=== PATIENT | female | born 1955 | race African-American/Black ===

== ENCOUNTER 2016-08-16 19:39 | Emergency (ER) | payer OTHER ==
[2016-08-16 19:47] VITALS: BP 156/91; BMI 35.7
[2016-08-16] MEDS ORDERED: IBUPROFEN 600 MG TABLET (FP) PO ONE ×2 (20:01→20:05)
--- NOTE | 2016-08-16 20:18 | PDOC ---
History of Present Illness - General Chief Complaint: Back Pain Stated Complaint: BACK PAIN/COUGH/FEVER/VOMITING Time Seen by Provider: 08/16/16 19:52 History Source: Patient Exam Limitations: No Limitations - History of Present Illness Initial Comments: 08/16/16 20:05 60-year-old female with history of diabetes presents with generalized myalgia, cough, sore throat, nausea, subjective fever and chills, and generalized weakness. Patient states took nothing for the above and denies any recent travel or recent sick contacts. Timing/Duration: 24 hours Severity: moderate Associated Symptoms: reports: cough, fever/chills, nausea/vomiting, weakness Past History - Past Medical History Allergies/Adverse Reactions: Allergies Allergy/AdvReac Type Severity Reaction Status Date / Time No Known Allergies Allergy Verified 08/16/16 19:45 Home Medications: Ambulatory Orders Lovastatin 10 mg PO HS 11/03/11 Potassium Chloride [K-Dur -] 10 meq PO DAILY 11/03/11 Ramipril [Altace] 20 mg PO DAILY 11/03/11 Felodipine [Plendil] 10 mg PO DAILY #30 11/06/11 Metformin HCl [Glucophage] 500 mg PO BIDAC #30 tablet 11/06/11 Azithromycin [Zithromax 250mg Tablets -] 250 mg PO UTDICT #6 tab 05/16/16 Guaifenesin Dm [Mucinex Dm -] 1 tab PO Q12H PRN #10 tab.er.12h 05/16/16 Lisinopril [Prinivil] 20 mg PO DAILY 05/16/16 Diabetes: Yes (insulin dependent) HTN: Yes Suicide Attempt (Hx): No - Immunization History Immunization Up to Date: Yes - Psycho/Social/Smoking Cessation Hx Anxiety: No Suicidal Ideation: No Smoking Status: No Smoking History: Never smoked Have you smoked in the past 12 months: No Number of Cigarettes Smoked Daily: 0 Information on smoking cessation initiated: No Hx Alcohol Use: No Drug/Substance Use Hx: No Substance Use Type: None Patient Lives Alone: No Lives with/in: spouse/SO Review of Systems - Review of Systems Able to Perform ROS?: Yes Constitutional: Yes: Chills, Fever HEENTM: Yes: Throat Pain Respiratory: Yes: Cough Cardiac (ROS): No: Symptoms Reported ABD/GI: Yes: Nausea : No: Symptoms Reported Musculoskeletal: Yes: Muscle Pain (generalized) Integumentary: No: Symptoms Reported Neurological: No: Symptoms reported Endocrine: No: Symptoms Reported Hematologic/Lymphatic: No: Symptoms Reported *Physical Exam - Vital Signs Last Vital Signs Temp Pulse Resp BP Pulse Ox 99.0 F 96 H 14 156/91 96 08/16/16 19:45 08/16/16 19:45 08/16/16 19:45 08/16/16 19:45 08/16/16 19:45 - Physical Exam General Appearance: Yes: Nourished, Appropriately Dressed. No: Apparent Distress HEENT: positive: EOMI, ALVAR[place]O, TMs Normal, Pharynx Normal. negative: Pale Conjunctivae Neck: positive: Supple. negative: Lymphadenopathy (R), Lymphadenopathy (L) Respiratory/Chest: positive: Lungs Clear, Normal Breath Sounds. negative: Respiratory Distress, Accessory Muscle Use Cardiovascular: positive: Regular Rhythm, Regular Rate. negative: Murmur Gastrointestinal/Abdominal: positive: Soft. negative: Tenderness Extremity: positive: Normal Capillary Refill. negative: Pedal Edema Integumentary: positive: Normal Color, Warm, Moist Neurologic: positive: Normal Mood/Affect, Motor Strength 12/18 ED Treatment Course - Medications Given in the ED: ED Medications Discontinued Medications Generic Name Dose Route Start Last Admin Trade Name Freq PRN Reason Stop Dose Admin Ibuprofen 600 mg 08/16/16 20:01 08/16/16 20:07 Motrin - PO 08/16/16 20:02 600 mg ONCE ONE Administration Medical Decision Making - Medical Decision Making 08/16/16 20:24 Pt with generalized weakness, cough, sore throat, nausea and generalized myalgia greater in the lower back. Pt appears viral ? influenza. Pt ordered for motrin and flu swab sent. [facility] yesterday 106. 08/16/16 21:20 Influenza inconclusive of influenza patient stating feeling better after receiving the Motrin and Flexeril for her back pain which she states is chronic. Patient states unable to give me urine at this time but does not feel this is urinary related and requesting to go home. Patient states does want something for the dry irritating cough especially at night when she is laying down. Patient will be given a prescription for Delsym since she is a diabetic. *DC/Admit/Observation/Transfer Diagnosis at time of Disposition: Cough, Muscle pain, Acute exacerbation of chronic low back pain - Discharge Dispostion Disposition: HOME Condition at time of disposition: Improved - Patient Instructions Printed Discharge Instructions: DI for Cough -- Adult, DI for Low Back Pain, DI for Viral Syndrome Additional Instructions: Please take Motrin or Tylenol for adequate myalgia and fever control. Drink plenty of fluids. Take Delsym is recommended for cough
[2016-08-16 22:09] VITALS: PULSE 83; TEMP 99.6
== END 2016-08-16 22:12 | disposition home or self-care (01) ==
LOC: JERFT 19:39
DX: M54.5 Low back pain (principal); M79.1 Myalgia; I10 Essential (primary) hypertension; E11.9 Type 2 diabetes mellitus without complications; Z79.4 Long term (current) use of insulin
CPT/HCPCS: 87254; 87804; 99281-25

== ENCOUNTER 2016-08-18 22:14 | Emergency (ER) | payer OTHER ==
[2016-08-18 22:42] VITALS: BP 134/95; PULSE 71; TEMP 98.5; BMI 37.4
== END 2016-08-18 23:20 | disposition left against medical advice (07) ==
LOC: JER 22:14
DX: Z53.21 Procedure and treatment not carried out due to patient leaving prior to being seen by health care provider (principal)
CPT/HCPCS: 99281-25

== ENCOUNTER 2016-10-22 04:35 | Emergency (ER) | payer OTHER ==
[2016-10-22 04:59] VITALS: BP 125/84; PULSE 88; TEMP 97.9; BMI 32.4
[2016-10-22] MEDS ORDERED: ALBUTEROL SO4 2.5/IPRATROPIUM 0.5 INH SOL 3 ML VIAL.NEB. NEB STA ×2 (05:03)
[2016-10-22] MEDS ORDERED: predniSONE 20 MG TABLET (UD) PO ONE (05:03)
--- NOTE | 2016-10-22 05:04 | PDOC ---
History of Present Illness - General History Source: Patient Exam Limitations: No Limitations - History of Present Illness Initial Comments: 10/22/16 05:12 The patient is a 60 year old female with significant past medical history of hypertension and diabetes who presents to the ED with 1 week of persistent cough and post nasal drip. She states taking mucinex and sudafed with no improvement. She denies chest pain or SOB. Denies history of asthma. Denies known sick contacts. Patient states she was exposed to smoke around her, but denies smoking. The patient denies fever, chills, diaphoresis, and lightheadedness. The patient denies abdominal pain, nausea, vomiting, and diarrhea. Allergies: NKDA Social History: No alcohol, tobacco, or drug use reported. Past Surgical History: None reported PCP: Dr. Ricky Bernard <Kathryn Rodriguez - Last Filed: 10/22/16 05:12> - General History Source: Patient <GerardoPollo sher - Last Filed: 10/22/16 06:38> - General Chief Complaint: Cold Symptoms Stated Complaint: CANT SLEEP Time Seen by Provider: 10/22/16 05:02 Past History <Kathryn Rodriguez - Last Filed: 10/22/16 05:12> - Past Medical History Diabetes: Yes (insulin dependent) HTN: Yes Suicide Attempt (Hx): No - Immunization History Immunization Up to Date: Yes - Psycho/Social/Smoking Cessation Hx Anxiety: No Suicidal Ideation: No Smoking Status: No Smoking History: Never smoked Have you smoked in the past 12 months: No Number of Cigarettes Smoked Daily: 0 Information on smoking cessation initiated: No Hx Alcohol Use: No Drug/Substance Use Hx: No Substance Use Type: None <Pollo Early - Last Filed: 10/22/16 06:38> - Past Medical History Allergies/Adverse Reactions: Allergies Allergy/AdvReac Type Severity Reaction Status Date / Time No Known Allergies Allergy Verified 08/18/16 22:38 Home Medications: Ambulatory Orders Lovastatin 10 mg PO HS 11/03/11 Potassium Chloride [K-Dur -] 10 meq PO DAILY 11/03/11 Ramipril [Altace] 20 mg PO DAILY 11/03/11 Felodipine [Plendil] 10 mg PO DAILY #30 11/06/11 Metformin HCl [Glucophage] 500 mg PO BIDAC #30 tablet 11/06/11 Azithromycin [Zithromax 250mg Tablets -] 250 mg PO UTDICT #6 tab 05/16/16 Guaifenesin Dm [Mucinex Dm -] 1 tab PO Q12H PRN #10 tab.er.12h 05/16/16 Lisinopril [Prinivil] 20 mg PO DAILY 05/16/16 Diphenhydra/Phenyleph/Acetamin [Delsym Cough+Cold Nighttime Lq] 20 ml PO HS #1 bottle 08/16/16 Albuterol Sulfate Inhaler - [Ventolin HFA Inhaler -] 2 inh IH Q6H #1 inh Azithromycin [Zithromax -] 250 mg PO UTDICT #6 tab 10/22/16 Methylprednisolone [Medrol Dose Ralf] 4 mg PO ASDIR #21 tablet 10/22/16 Review of Systems - Review of Systems Able to Perform ROS?: Yes Comments:: 10/22/16 05:12 CONSTITUTIONAL: Absent: fever, no chills, no fatigue EYES: Absent: visual changes ENT: +post nasal drip Absent: ear pain, no sore throat CARDIOVASCULAR: Absent: chest pain, no palpitations RESPIRATORY: +cough Absent: no SOB GI: Absent: abdominal pain, no nausea, no vomiting, no constipation, no diarrhea GENITOURINARY: Absent: dysuria, no frequency, no hematuria MUSKULOSKELETAL: Absent: back pain, no arthralgia, no myalgia SKIN: Absent: rash NEURO: Absent: headache <Bharrat,Kathryn - Last Filed: 10/22/16 05:12> *Physical Exam - Vital Signs Last Vital Signs Temp Pulse Resp BP Pulse Ox 97.9 F 88 18 125/84 100 10/22/16 04:57 10/22/16 04:57 10/22/16 04:57 10/22/16 04:57 10/22/16 04:57 - Physical Exam Comments: 10/22/16 05:12 GENERAL: Well-appearing, well-nourished. No apparent distress. HEENT: Normocephalic, atraumatic. PERRL, EOM intact. CARDIOVASCULAR: Normal S1, S2. Regular rate and rhythm. PULMONARY: Diffuse wheezing. ABDOMEN: Soft, non-distended, non-tender. EXTREMITIES: Normal ROM in all four extremities. No gross deformities. SKIN: Warm, dry. No rash NEUROLOGICAL: No focal neurological deficits. <Kathryn Rodriguez - Last Filed: 10/22/16 05:12> - Vital Signs Last Vital Signs Temp Pulse Resp BP Pulse Ox 97.9 F 88 18 125/84 100 10/22/16 04:57 10/22/16 04:57 10/22/16 04:57 10/22/16 04:57 10/22/16 04:57 <Pollo Early - Last Filed: 10/22/16 06:38> ED Treatment Course - Medications Given in the ED: ED Medications Discontinued Medications Generic Name Dose Route Start Last Admin Trade Name Freq PRN Reason Stop Dose Admin Prednisone 60 mg 10/22/16 05:03 10/22/16 05:11 Deltasone - PO 10/22/16 05:04 60 mg ONCE ONE Administration <Kathryn Rodriguez - Last Filed: 10/22/16 05:12> Medical Decision Making - Medical Decision Making 10/22/16 06:37 Dr. Early: The scribe's documentation has been prepared under my direction and personally reviewed by me in its entirery. I confirm that the note above accurately reflects all work, treatment, procedures, and medical decision making performed by me. <Pollo Early - Last Filed: 10/22/16 06:38> *DC/Admit/Observation/Transfer - Attestations Scribe Attestion: 10/22/16 05:12 Documentation prepared by Kathryn Rodriguez, acting as medical certification specialist for Pollo Early MD <Kathryn Rodriguez - Last Filed: 10/22/16 05:12> - Discharge Dispostion Admit: No <Pollo Early - Last Filed: 10/22/16 06:38> Diagnosis at time of Disposition: Bronchitis, Bronchospasm - Discharge Dispostion Disposition: HOME Condition at time of disposition: Stable - Prescriptions Prescriptions: Methylprednisolone [Medrol Dose Ralf] 4 mg PO ASDIR #21 tablet Albuterol Sulfate Inhaler - [Ventolin HFA Inhaler -] 2 inh IH Q6H #1 inh Azithromycin [Zithromax -] 250 mg PO UTDICT #6 tab - Referrals Referrals: Ricky Bernard [Primary Care Provider] - Arnold Krueger MD [Staff Physician] - - Patient Instructions Printed Discharge Instructions: DI for Acute Bronchitis Additional Instructions: Please start taking the medrol dose pack and antibiotic tomorrow follow up with you doctor as soon as possible.
[2016-10-22] MEDS ORDERED: predniSONE 20 MG TABLET (UD) ONE (05:05)
[2016-10-22] MEDS ORDERED: ALBUTEROL SO4 2.5/IPRATROPIUM 0.5 INH SOL 3 ML VIAL.NEB. NEB ONE ×2 (05:11→05:12)
[2016-10-22] MEDS ORDERED: AZITHROMYCIN 250 MG TABLET (FP) PO STA (06:34)
[2016-10-22] MEDS ORDERED: AZITHROMYCIN 250 MG TABLET (FP) ONE (06:40)
== END 2016-10-22 06:43 | disposition home or self-care (01) ==
LOC: JER 04:35
PROC: 3E0F7GC Introduction of Other Therapeutic Substance into Respiratory Tract, Via Natural or Artificial Opening (ICD-10-PCS; principal; 2016-10-22)
PROC: 3E0F7GC Introduction of Other Therapeutic Substance into Respiratory Tract, Via Natural or Artificial Opening (ICD-10-PCS; 2016-10-22)
DX: J20.9 Acute bronchitis, unspecified (principal); I10 Essential (primary) hypertension; E11.9 Type 2 diabetes mellitus without complications; Z79.84 Long term (current) use of oral hypoglycemic drugs
CPT/HCPCS: 99281-25

== ENCOUNTER 2017-03-17 18:45 | Observation (INO) | payer OTHER ==
[2017-03-17] MEDS ORDERED: ONDANSETRON 4 MG/2 ML VIAL IVPB ONE (19:26)
[2017-03-17] MEDS ORDERED: morphine CARPU-JECT 4 MG/1 ML DISP.SYRIN IVPUSH ONE (19:26)
[2017-03-17] MEDS ORDERED: SODIUM CHLORIDE 1,000 ML IV STA (19:26)
[2017-03-17] MEDS ORDERED: ONDANSETRON 4 MG/2 ML VIAL ONE (19:32)
[2017-03-17] MEDS ORDERED: morphine CARPU-JECT 4 MG/1 ML DISP.SYRIN ONE (19:32)
[2017-03-17 19:56] LABS: BASOPHIL 0.6 % (0-2.0); EOSINOPHIL 0.2 % (0-4.5); MCH 25.2 pg (25.7-33.7); MCHC 32.4 g/dl (32.0-36.0); MEAN CELL VOLUME 77.6 fl (80-96); MEAN PLT VOLUME 9.9 fl (7.5-11.1); NEUTROPHILS 83.2 % (42.8-82.8); PLATELET COUNT 258 K/MM3 (134-434); WHITE BLOOD COUNT 9.1 K/mm3 (4.0-10.0)
[2017-03-17 20:23] LABS: ALK PHOS 121 U/L (45-117); ANION GAP 10 (8-16); BILIRUBIN,TOTAL 0.3 mg/dL (0.2-1.0); CO2 26 mmol/L (21-32); CREATININE 0.8 mg/dL (0.55-1.02); GLUCOSE,RANDOM 161 mg/dL (74-106); SGOT/AST 16 U/L (15-37); SGPT/ALT 25 U/L (12-78)
[2017-03-17 20:26] LABS: CPK 230 IU/L (26-192); TROPONIN I < 0.02 ng/ml (0.00-0.05)
[2017-03-17] MEDS ORDERED: SODIUM CHLORIDE 500 ML IV STA (21:25)
[2017-03-17] MEDS ORDERED: METOCLOPRAMIDE HCL INJECTION 10 MG/2 ML VIAL IVPB ONE (21:55)
[2017-03-17 23:01] LABS: URINE APPEARANCE CLEAR; URINE BILIRUBIN NEGATIVE (NEGATIVE); URINE BLOOD 1+ (NEGATIVE); URINE COLOR STRAW; URINE GLUCOSE (UA) NEGATIVE (NEGATIVE); URINE KETONE TRACE (NEGATIVE); URINE LEUK ESTERASE NEGATIVE (NEGATIVE); URINE NITRITE NEGATIVE (NEGATIVE); URINE UROBILINOGEN NEGATIVE mg/dL (0.2-1.0)
[2017-03-17 23:08] LABS: URINE PROTEIN 1+ (NEGATIVE)
[2017-03-17 23:09] LABS: URINE MUCUS RARE; URINE RBC 1 /hpf (0-3); URINE WBC <1 /hpf (3-5)
--- NOTE | 2017-03-17 23:57 | PDOC ---
History of Present Illness <Hazel Love - Last Filed: 03/18/17 00:28> - General History Source: Patient Exam Limitations: No Limitations - History of Present Illness Initial Comments: 03/17/17 23:51 61-year-old female with history of diabetes, hypertension, hyperlipidemia, copd complains of severe diffuse intermittent abdominal pain, 10 of 10, nonradiating , not positional, associated with numerous episodes of nonbloody, nonbilious vomiting and several episodes of loose watery stools. Patient denies fevers/ chills/melena/bright red blood per rectum there is no history of sick contacts, nor history of travel. Patient denies history of diabetic gastroparesis. REVIEW OF SYSTEMS CONSTITUTIONAL: No fever, no chills, no fatigue EYES: No visual changes ENT: No ear pain, no sore throat CARDIOVASCULAR: No chest pain, no palpitations RESPIRATORY: No cough, no SOB GI: + abdominal pain, + nausea, + vomiting, no constipation, + diarrhea GENITOURINARY: No dysuria, no frequency, no hematuria MUSKULOSKELETAL: No backpain, no joint pain, no myalgias SKIN: No rash NEURO: No headache EXAMINATION CONSTITUTIONAL: Awake and alert,; obese; in moderate distress; HEAD: Normocephalic; atraumatic EYES: PERRL; EOM intact; no scleral icterus; ENMT: External appears normal; mm-dry NECK: Supple; non-tender; no cervical lymphadenopathy CARD: Normal S1, S2; no murmurs, rubs, or gallops RESP: Normal chest excursion with respiration; breath sounds clear and equal bilaterally; no wheezes, rhonchi, or rales ABD: Soft, non-distended; + diffuse tenderness, most prominent periumbilically and in the epigastrium; no guarding/rebound; no palpable organomegaly, no palpable hernias; no CVA tenderness bilaterally EXT: Normal ROM in all four extremities; non-tender to palpation; distal pulses intact SKIN: Warm, dry, no rash NEURO: No focal neurological deficiencies. <Tej Roach - Last Filed: 03/18/17 00:31> - General Chief Complaint: Pain Stated Complaint: ABDOMINAL PAIN Time Seen by Provider: 03/17/17 19:09 Past History <Hazel Love - Last Filed: 03/18/17 00:28> - Past Medical History Diabetes: Yes (insulin dependent) HTN: Yes Suicide Attempt (Hx): No - Immunization History Immunization Up to Date: Yes - Psycho/Social/Smoking Cessation Hx Anxiety: No Suicidal Ideation: No Smoking Status: No Smoking History: Never smoked Have you smoked in the past 12 months: No Number of Cigarettes Smoked Daily: 0 Hx Alcohol Use: No Drug/Substance Use Hx: No Substance Use Type: None <Tej Roach - Last Filed: 03/18/17 00:31> - Past Medical History Allergies/Adverse Reactions: Allergies Allergy/AdvReac Type Severity Reaction Status Date / Time No Known Allergies Allergy Verified 03/17/17 18:54 Home Medications: Ambulatory Orders Lovastatin 10 mg PO HS 11/03/11 Potassium Chloride [K-Dur -] 10 meq PO DAILY 11/03/11 Ramipril [Altace] 20 mg PO DAILY 11/03/11 Metformin HCl [Glucophage] 500 mg PO BIDAC #30 tablet 11/06/11 Lisinopril [Prinivil] 20 mg PO DAILY 05/16/16 Albuterol Sulfate Inhaler - [Ventolin HFA Inhaler -] 2 inh IH Q6H #1 inh Methylprednisolone [Medrol Dose Ralf] 4 mg PO ASDIR #21 tablet 10/22/16 *Physical Exam - Vital Signs Last Vital Signs Temp Pulse Resp BP Pulse Ox 98.7 F 97 H 20 140/86 96 03/18/17 00:00 03/18/17 00:00 03/17/17 18:53 03/18/17 00:00 03/18/17 00:00 <Hazel Love - Last Filed: 03/18/17 00:28> - Vital Signs Last Vital Signs Temp Pulse Resp BP Pulse Ox 98.7 F 107 H 20 150/101 95 03/17/17 18:53 03/17/17 18:53 03/17/17 18:53 03/17/17 18:53 03/17/17 18:53 <Tej Roach - Last Filed: 03/18/17 00:31> Heart Score/ECG Review - ECG Intrepretation Comment:: 03/18/17 00:28 EKG was reviewed by Dr. Roach at 00:23. Impression: Sinus tachycardia. Possible Left atrial enlargement. Incomplete right bundle branch block. Nonspecific ST and T wave abnormality. Vent. rate: 101 bpm [place] Interval: 146 ms QTc: 461 ms <Hazel Love - Last Filed: 03/18/17 00:28> ED Treatment Course - LABORATORY CBC & Chemistry Diagram: 03/17/17 19:45 03/17/17 19:45 - ADDITIONAL ORDERS Additional order review: Laboratory Results 03/17/17 03/17/17 03/17/17 22:50 19:45 19:45 Sodium Potassium Chloride Carbon Dioxide Anion Gap BUN Creatinine Creat Clearance w eGFR Random Glucose Lactic Acid 2.1 H* Calcium Total Bilirubin AST ALT Alkaline Phosphatase Creatine Kinase 230 H Creatine Kinase Index 0.6 CK-MB (CK-2) 1.574 Troponin I < 0.02 Total Protein Albumin Lipase Urine Color Straw Urine Appearance Clear Urine pH 6.0 Urine Protein 1+ H Urine Glucose (UA) Negative Urine Ketones Trace H Urine Blood 1+ H Urine Nitrite Negative Urine Bilirubin Negative Urine Urobilinogen Negative Ur Leukocyte Esterase Negative Urine RBC 1 Urine WBC <1 Ur Epithelial Cells Rare Urine Mucus Rare 03/17/17 19:45 Sodium 139 Potassium 3.5 Chloride 103 Carbon Dioxide 26 Anion Gap 10 BUN 15 D Creatinine 0.8 D Creat Clearance w eGFR > 60 Random Glucose 161 H D Lactic Acid Calcium 10.0 Total Bilirubin 0.3 AST 16 D ALT 25 D Alkaline Phosphatase 121 H Creatine Kinase Creatine Kinase Index CK-MB (CK-2) Troponin I Total Protein 8.0 Albumin 4.0 Lipase 92 Urine Color Urine Appearance Urine pH Urine Protein Urine Glucose (UA) Urine Ketones Urine Blood Urine Nitrite Urine Bilirubin Urine Urobilinogen Ur Leukocyte Esterase Urine RBC Urine WBC Ur Epithelial Cells Urine Mucus 03/17/17 19:45 RBC 4.86 MCV 77.6 L MCHC 32.4 RDW 15.0 MPV 9.9 Neutrophils % 83.2 H D Lymphocytes % 13.5 D Monocytes % 2.5 L Eosinophils % 0.2 D Basophils % 0.6 - Medications Given in the ED: ED Medications Discontinued Medications Generic Name Dose Route Start Last Admin Trade Name Freq PRN Reason Stop Dose Admin Sodium Chloride 1,000 mls @ 1,000 mls/hr 03/17/17 19:26 03/17/17 19:50 Normal Saline - IV 03/17/17 20:25 1,000 mls/hr ASDIR STA Administration Sodium Chloride 500 mls @ 500 mls/hr 03/17/17 21:25 03/17/17 21:59 Normal Saline - IV 03/17/17 22:24 500 mls/hr ASDIR STA Administration Metoclopramide HCl 10 mg 03/17/17 21:55 03/17/17 21:59 Reglan Injection - IVPB 03/17/17 21:56 10 mg ONCE ONE Administration Morphine Sulfate 4 mg 03/17/17 19:26 03/17/17 19:48 Morphine Injection - IVPUSH 03/17/17 19:27 4 mg ONCE ONE Administration Ondansetron HCl 8 mg 03/17/17 19:26 03/17/17 19:45 Zofran Injection IVPB 03/17/17 19:27 8 mg ONCE ONE Administration <Hazel Love - Last Filed: 03/18/17 00:28> - LABORATORY CBC & Chemistry Diagram: 03/17/17 19:45 03/17/17 19:45 - ADDITIONAL ORDERS Additional order review: Laboratory Results 03/17/17 03/17/17 03/17/17 22:50 19:45 19:45 Sodium Potassium Chloride Carbon Dioxide Anion Gap BUN Creatinine Creat Clearance w eGFR Random Glucose Lactic Acid 2.1 H* Calcium Total Bilirubin AST ALT Alkaline Phosphatase Creatine Kinase 230 H Creatine Kinase Index 0.6 CK-MB (CK-2) 1.574 Troponin I < 0.02 Total Protein Albumin Lipase Urine Color Straw Urine Appearance Clear Urine pH 6.0 Urine Protein 1+ H Urine Glucose (UA) Negative Urine Ketones Trace H Urine Blood 1+ H Urine Nitrite Negative Urine Bilirubin Negative Urine Urobilinogen Negative Ur Leukocyte Esterase Negative Urine RBC 1 Urine WBC <1 Ur Epithelial Cells Rare Urine Mucus Rare 03/17/17 19:45 Sodium 139 Potassium 3.5 Chloride 103 Carbon Dioxide 26 Anion Gap 10 BUN 15 D Creatinine 0.8 D Creat Clearance w eGFR > 60 Random Glucose 161 H D Lactic Acid Calcium 10.0 Total Bilirubin 0.3 AST 16 D ALT 25 D Alkaline Phosphatase 121 H Creatine Kinase Creatine Kinase Index CK-MB (CK-2) Troponin I Total Protein 8.0 Albumin 4.0 Lipase 92 Urine Color Urine Appearance Urine pH Urine Protein Urine Glucose (UA) Urine Ketones Urine Blood Urine Nitrite Urine Bilirubin Urine Urobilinogen Ur Leukocyte Esterase Urine RBC Urine WBC Ur Epithelial Cells Urine Mucus 03/17/17 19:45 RBC 4.86 MCV 77.6 L MCHC 32.4 RDW 15.0 MPV 9.9 Neutrophils % 83.2 H D Lymphocytes % 13.5 D Monocytes % 2.5 L Eosinophils % 0.2 D Basophils % 0.6 - RADIOLOGY Radiology Studies Ordered: Category Date Time Status ABDOMEN & PELVIS CT W/O CONTR [CT] Stat CT Scan 03/17/17 21:25 Completed - Medications Given in the ED: ED Medications Discontinued Medications Generic Name Dose Route Start Last Admin Trade Name Freq PRN Reason Stop Dose Admin Sodium Chloride 1,000 mls @ 1,000 mls/hr 03/17/17 19:26 03/17/17 19:50 Normal Saline - IV 03/17/17 20:25 1,000 mls/hr ASDIR STA Administration Sodium Chloride 500 mls @ 500 mls/hr 03/17/17 21:25 03/17/17 21:59 Normal Saline - IV 03/17/17 22:24 500 mls/hr ASDIR STA Administration Metoclopramide HCl 10 mg 03/17/17 21:55 03/17/17 21:59 Reglan Injection - IVPB 03/17/17 21:56 10 mg ONCE ONE Administration Morphine Sulfate 4 mg 03/17/17 19:26 03/17/17 19:48 Morphine Injection - IVPUSH 03/17/17 19:27 4 mg ONCE ONE Administration Ondansetron HCl 8 mg 03/17/17 19:26 03/17/17 19:45 Zofran Injection IVPB 03/17/17 19:27 8 mg ONCE ONE Administration <Tej Rocah - Last Filed: 03/18/17 00:31> Medical Decision Making - Medical Decision Making 03/17/17 23:57 Patient 61-year-old female with history of diabetes, hypertension, hyperlipidemia and COPD who presents with diffuse abdominal pain, associated with numerous episodes of nausea, nonbloody nonbilious vomiting and diarrhea. In the ER, patient is awake and alert, writhing in pain, vomited several times requiring several doses of Zofran and Reglan as well as parenteral morphine for pain control. CBC/CMP/UA within normal limit. CT reveals no evidence of acute intra-abdominal pathology. I suspect gastroenteritis versus diabetic gastroparesis. Patient is still unable to tolerate by mouth liquids. At this time, she will require admission further hydration and antiemetic therapy. <MarleyGiuseppeTej - Last Filed: 03/18/17 00:31> *DC/Admit/Observation/Transfer <Hazel Love - Last Filed: 03/18/17 00:28> - Discharge Dispostion Admit: Yes <MarleyTej - Last Filed: 03/18/17 00:31> Diagnosis at time of Disposition: Dehydration Abdominal pain Qualifiers: Abdominal location: generalized Qualified Code(s): R10.84 - Generalized abdominal pain Nausea and vomiting Qualifiers: Vomiting type: unspecified Vomiting Intractability: non-intractable Qualified Code(s): R11.2 - Nausea with vomiting, unspecified Diarrhea Qualifiers: Diarrhea type: unspecified type Qualified Code(s): R19.7 - Diarrhea, unspecified - Discharge Dispostion Condition at time of disposition: Fair
[2017-03-18] MEDS ORDERED: morphine CARPU-JECT 4 MG/1 ML DISP.SYRIN IVPUSH ONE (00:04)
[2017-03-18] MEDS ORDERED: SODIUM CHLORIDE 1,000 ML IV SCH (00:15)
[2017-03-18] MEDS ORDERED: morphine CARPU-JECT 4 MG/1 ML DISP.SYRIN ONE (00:27)
[2017-03-18] MEDS ORDERED: ONDANSETRON 4 MG/2 ML VIAL IVPUSH PRN (01:35)
--- NOTE | 2017-03-18 01:56 | HP ---
CHIEF COMPLAINT: Abdominal pain, nausea, vomiting PCP: HISTORY OF PRESENT ILLNESS: 61yo F with history of diabetes, COPD, HTN, HPL admitted to observation for diffuse abdominal pain, nausea, and multiple episodes of vomiting since noon on 03/17. She states she ate some wonton soup and then started having episodes of vomiting and nausea. She admits to vomiting around 10 times prior to coming to the ED without noting any blood. She also states she has been having loose watery stools without any blood or mucus. She describes her abdominal pain as diffuse and hard to locate. It does not change with position, and waxes-and- wanes in intensity. Denies any fever/chills, sick contacts, urinary complaints. ER course was notable for: (1)CT abdomen with gastrograffin -- no acute pathology noted; 7mm R nonobstructing renal pelvis stone noted (2) Zofran 8mg, Reglan 10mg administered for nausea (3) EKG revealing sinus tachycardia without any ischemic changes (4) CBC, CMP, Lipase, UA all within normal limits (5) Borderline elevation of LA at 2.1 (6) 1L NS initiated for dehydration Recent Travel: Denies PAST MEDICAL HISTORY: COPD HTN Diabetes HPL PAST SURGICAL HISTORY: Left and Right knee replacement (2012 & 2014 respectively) Social History: Smoking: Denies Alcohol: Denies Drugs: Denies Family History: Father - -- unknown Mother - alive - CKD, cardiac stents placed Allergies No Known Allergies Allergy (Verified 03/17/17 18:54) HOME MEDICATIONS: Home Medications Medication Instructions Recorded Lovastatin 10 mg PO HS 11/03/11 Potassium Chloride [K-Dur -] 10 meq PO DAILY 11/03/11 Ramipril [Altace] 20 mg PO DAILY 11/03/11 Metformin HCl [Glucophage] 500 mg PO BIDAC #30 tablet 11/06/11 Lisinopril [Prinivil] 20 mg PO DAILY 05/16/16 Albuterol Sulfate Inhaler - 2 inh IH Q6H #1 inh 10/22/16 [Ventolin HFA Inhaler -] Methylprednisolone [Medrol Dose 4 mg PO ASDIR #21 tablet 10/22/16 Ralf] REVIEW OF SYSTEMS CONSTITUTIONAL: Absent: fever, chills, diaphoresis, generalized weakness, malaise, weight change HEENT: Absent: rhinorrhea, nasal congestion, throat pain, throat swelling, difficulty swallowing, mouth swelling, ear pain, eye pain, visual changes CARDIOVASCULAR: Absent: chest pain, syncope, palpitations, irregular heart rate, lightheadedness , peripheral edema RESPIRATORY: Absent: cough, shortness of breath, dyspnea with exertion, orthopnea, wheezing, stridor, hemoptysis GASTROINTESTINAL: Present: Abdominal pain (diffuse), nausea, vomiting (multiple episodes), diarrhea Absent: constipation, melena, hematochezia GENITOURINARY: Absent: dysuria, frequency, urgency, hesitancy, hematuria, flank pain, genital pain SKIN: Absent: rash, itching, pallor NEUROLOGIC: Absent: headache, focal weakness or paresthesias, dizziness, unsteady gait, seizure, mental status changes, bladder or bowel incontinence PSYCHIATRIC: Absent: anxiety, depression, suicidal or homicidal ideation, hallucinations. PHYSICAL EXAMINATION GENERAL: Awake, alert, and fully oriented, in no acute distress. HEAD: Normal with no signs of trauma. EYES: Pupils equal, round and reactive to light, extraocular movements intact LUNGS: Breath sounds equal, clear to auscultation bilaterally. No wheezes, and no crackles. No accessory muscle use. HEART: Regular rate. Tachycardic, normal S1 and S2 without murmur, rub or gallop. ABDOMEN: Soft, diffuse tenderness, slightly distended, normoactive bowel sounds , no guarding, no rebound, no masses. No hepatomegaly or splenomegaly. MUSCULOSKELETAL: Normal range of motion at all joints. No CVA tenderness. UPPER EXTREMITIES: 2+ pulses, warm, well-perfused. No peripheral edema. LOWER EXTREMITIES: 2+ pulses, warm, well-perfused. No peripheral edema. NEUROLOGICAL: Cranial nerves II-XII intact. Normal speech. PSYCHIATRIC: Cooperative. Appropriate mood and affect. SKIN: Warm, dry, no rashes or lesions noted ASSESSMENT/PLAN: 61 yo F pmhx of copd, htn, diabetes, hpl admitted to obs for most likely gastroenteritis. Initial presentation of multiple episodes of vomiting, nausea, diffuse abdominal pain. Currently since receiving zofran and reglan, pt is still nauseous however has not vomited since. 1) Gastroenteritis --CT Abdomen with gastrograffin: No acute pathology noted. Bowel non- distended with gastrograffin reaching distal colon. Pancreas and appendix normal. 7mm nonobstructing R renal pelvis stone noted. --Doubt diabetic gastroparesis due to acute timing and lack of ileus seen on CT scan --Most likely etiology of symptoms --Continue Zofran 8mg IVP PRN for nausea --Continue Reglan 10mg IVP PRN for nausea/vomiting --Continue 1L NS fluids --Clear liquid diet for now; will trial diabetic full diet in morning for PO tolerance before discharge 2) Diabetes --ISS on board --BGM monitoring --Random BG lvl 161 currently FEN: Fluids: NS for dehydration Electrolytes: No abnormalities seen Nutrition: Clear liquids for now; tomorrow will trial on diabetic full diet prior to discharge Dispo: Admit to observation Visit type - Emergency Visit Emergency Visit: Yes ED Registration Date: 03/18/17 Care time: The patient presented to the Emergency Department on the above date and was hospitalized for further evaluation of their emergent condition. - New Patient This patient is new to me today: Yes Date on this admission: 03/18/17 - Critical Care Critical Care patient: No
[2017-03-18 03:09] VITALS: BMI 37.0
[2017-03-18] MEDS: morphine CARPU-JECT 4 MG/1 ML DISP.SYRIN IVPUSH PRN ×2 (05:58→14:02)
[2017-03-18] MEDS: INSULIN SLIDING SCALE (NOVOLOG) 1 VIAL SQ SCH ×4 (06:03→21:37)
--- NOTE | 2017-03-18 06:46 | PN ---
Teaching Attending Note Name of Resident: Eliel Krueger ATTENDING PHYSICIAN STATEMENT I saw and evaluated the patient. I reviewed the resident's note and discussed the case with the resident. I agree with the resident's findings and plan as documented. 61 yrs old f H?o Obesity, T2DM, HTN, Dyslipedemia, COPD present with nausea with non bloody, non Billous vomiting, 8-10 time with watery loose stool after having soup in after noon, patient denies any epigastic pain, fever, chills, hemetmesis or melena, on arrival to Ed hemodynamically stable, clinically mild dehydration, labs are essentially normal, symptoms partially improved after IV Hydration and Zofran in the ED, admitted for observation and IV Hydration; Impression: 1. acute Gastroenteritis with mild dehydration:no clinical sign of of sepsis , presentation more consistent with contaminated food , started with in few hours , no abx, IV Hydration and symptomatic treatment f/u clinically 2. Mildly Elevated lactic acid : On Metformin dehydration, normal Bicarbonate , less likely due to Sepsis F/U after IV Hydration. Hold Metformin 3. HTN: well controlled cont all meds 4. Dyslipedemia; Cont all home meds 5. COPD; stable cont Home inhalers. 6. T2DM: RPG 160 hold Metformin F/U Accu Check with Sliding scale regular insulin. SCD for DVT Prophylaxis
[2017-03-18 09:03] LABS: ANION GAP 9 (8-16); CALCIUM 8.6 mg/dL (8.5-10.1); CO2 27 mmol/L (21-32); CREATININE 0.6 mg/dL (0.55-1.02); GLUCOSE,RANDOM 116 mg/dL (74-106)
--- NOTE | 2017-03-18 10:43 | EKG ---
Test Reason : Blood Pressure : / mmHG Vent. Rate : 101 BPM Atrial Rate : 101 BPM P-R Int : 146 ms QRS Dur : 092 ms QT Int : 356 ms P-R-T Axes : 043 -27 039 degrees QTc Int : 461 ms SINUS TACHYCARDIA POSSIBLE LEFT ATRIAL ENLARGEMENT INCOMPLETE RIGHT BUNDLE BRANCH BLOCK NONSPECIFIC ST AND T WAVE ABNORMALITY ABNORMAL ECG WHEN COMPARED WITH ECG OF 17-APR-2015 15:07, ST NOW DEPRESSED IN INFERIOR LEADS NONSPECIFIC T WAVE ABNORMALITY NOW EVIDENT IN ANTERIOR LEADS Confirmed by ELIJAH AMOS MD ([id number]) on 03/18/2017 10:42:59 AM Referred By: Confirmed By:ELIJAH AMOS MD
[2017-03-18] MEDS ORDERED: POTASSIUM CHLORIDE TABS 20 MEQ TABLET.ER (FP) PO ONE (11:35)
[2017-03-18] MEDS: METOCLOPRAMIDE HCL INJECTION 10 MG/2 ML VIAL IVPUSH PRN (11:54)
[2017-03-18] MEDS: POTASSIUM CHLORIDE 40 MEQ in SODIUM CHLORIDE 0.45% 1,000 ML IVPB SCH ×3 (13:51→21:38)
--- NOTE | 2017-03-18 16:26 | PN ---
Physical Exam: SUBJECTIVE: Patient seen and examined at bedside. States she is still having abdominal pain and vomiting. No other complaints. Denies headache, cp, sob, diarrhea, dysuria, fever. OBJECTIVE: Vital Signs Period Temp Pulse Resp BP Sys/Malone Pulse Ox Last 24 Hr 98.6 F-98.9 F 81-102 18-20 130-161/68-96 93 GENERAL: The patient is awake, alert, and fully oriented, in no acute distress. HEAD: Normal with no signs of trauma. EYES: sclera anicteric, conjunctiva clear. No ptosis. ENT: oropharynx clear without exudates, moist mucous membranes. NECK: Trachea midline, full range of motion, supple. LUNGS: Breath sounds equal, clear to auscultation bilaterally, no wheezes, no crackles, no accessory muscle use. HEART: Regular rate and rhythm, normal S1, S2 without murmur, rub or gallop. ABDOMEN: Obese. Soft, nontender, nondistended, normoactive bowel sounds, no guarding, no rebound, no hepatosplenomegaly, no masses. EXTREMITIES: 2+ pulses, warm, well-perfused, no edema. NEUROLOGICAL: Cranial nerves II through XII grossly intact. Normal speech, gait not observed. PSYCH: Normal mood, normal affect. SKIN: Warm, dry, normal turgor, no rashes or lesions noted Laboratory Results - last 24 hr 03/18/17 03/18/17 03/18/17 06:00 08:00 09:25 Sodium 138 Potassium 3.3 L Chloride 102 Carbon Dioxide 27 Anion Gap 9 BUN 10 D Creatinine 0.6 D POC Glucometer 121 Random Glucose 116 H D Lactic Acid 0.8 Calcium 8.6 03/18/17 11:14 Sodium Potassium Chloride Carbon Dioxide Anion Gap BUN Creatinine POC Glucometer 132 Random Glucose Lactic Acid Calcium Active Medications Generic Name Dose Route Start Last Admin Trade Name Freq PRN Reason Stop Dose Admin Potassium Chloride 40 meq/ 1,020 mls @ 150 mls/hr 03/18/17 12:00 03/18/17 13:51 Sodium Chloride IVPB 150 mls/hr Q6H AMOR Administration Insulin Aspart 1 vial 03/18/17 07:00 03/18/17 11:15 Novolog Vial Sliding Scale - SQ Not Given ACHS [facility] Protocol Metoclopramide HCl 10 mg 03/18/17 01:33 03/18/17 11:54 Reglan Injection - IVPUSH 10 mg Q6H PRN Administration NAUSEA AND/OR VOMITING Morphine Sulfate 2 mg 03/18/17 01:29 03/18/17 14:02 Morphine Injection - IVPUSH 2 mg Q4H PRN Administration PAIN ASSESSMENT/PLAN: 61 yo F pmhx of copd, htn, diabetes, hpl admitted to obs for most likely gastroenteritis. Initial presentation of multiple episodes of vomiting, nausea, diffuse abdominal pain. Admitted to Obs for gastroenteritis #Gastroenteritis -CT Abdomen with gastrograffin: No acute pathology noted. Bowel non-distended with gastrograffin reaching distal colon. Pancreas and appendix normal. 7mm nonobstructing R renal pelvis stone noted. -diabetic gastroparesis unlikely because of acute timing and lack of ileus seen on CT scan -Continue Reglan 10mg IVP PRN for nausea/vomiting -diabetic diet -Morphine for pain -UCx, UA #Lactic Acidosis: RESOLVED -from 2.1 to 0.8 #HypoK -1/2NS w/ 40mEq KCl #Diabetes -ISS on board -BGM monitoring #HLD -cont home meds #COPD -Cont home meds #FEN: -Fluids: 1/2NS w/ 40mEq KCl -Electrolytes: hypoK. repleted -Nutrition: Clear liquids for now; tomorrow will trial on diabetic full diet prior to discharge #Dispo: Admit to observation Visit type - Emergency Visit Emergency Visit: No - New Patient This patient is new to me today: No - Critical Care Critical Care patient: No - Discharge Referral Referred to [facility] No
--- NOTE | 2017-03-18 19:56 | PN ---
Teaching Attending Note Name of Resident: Brandon Serrano ATTENDING PHYSICIAN STATEMENT I saw and evaluated the patient. I reviewed the resident's note and discussed the case with the resident. I agree with the resident's findings and plan as documented. SUBJECTIVE: Patient continue to experience nausea and vomiting. No fever or chills. OBJECTIVE: Vital Signs Temperature 98.9 F 03/18/17 14:00 Pulse Rate 81 03/18/17 14:00 Respiratory Rate 20 03/18/17 14:00 Blood Pressure 161/93 03/18/17 14:00 O2 Sat by Pulse Oximetry (%) 93 L 03/18/17 01:47 CBCD WBC 9.1 K/mm3 (4.0-10.0) D 03/17/17 19:45 RBC 4.86 M/mm3 (3.60-5.2) 03/17/17 19:45 Hgb 12.2 GM/dL (10.7-15.3) 03/17/17 19:45 Hct 37.7 % (32.4-45.2) 03/17/17 19:45 MCV 77.6 fl (80-96) L 03/17/17 19:45 MCHC 32.4 g/dl (32.0-36.0) 03/17/17 19:45 RDW 15.0 % (11.6-15.6) 03/17/17 19:45 Plt Count 258 K/MM3 (134-434) 03/17/17 19:45 MPV 9.9 fl (7.5-11.1) 03/17/17 19:45 CMP Sodium 138 mmol/L (136-145) 03/18/17 08:00 Potassium 3.3 mmol/L (3.5-5.1) L 03/18/17 08:00 Chloride 102 mmol/L (98-107) 03/18/17 08:00 Carbon Dioxide 27 mmol/L (21-32) 03/18/17 08:00 Anion Gap 9 (8-16) 03/18/17 08:00 BUN 10 mg/dL (7-18) D 03/18/17 08:00 Creatinine 0.6 mg/dL (0.55-1.02) D 03/18/17 08:00 Creat Clearance w eGFR > 60 (>60) 03/17/17 19:45 Random Glucose 116 mg/dL (74-106) H D 03/18/17 08:00 Calcium 8.6 mg/dL (8.5-10.1) 03/18/17 08:00 Total Bilirubin 0.3 mg/dL (0.2-1.0) 03/17/17 19:45 AST 16 U/L (15-37) D 03/17/17 19:45 ALT 25 U/L (12-78) D 03/17/17 19:45 Alkaline Phosphatase 121 U/L (45-117) H 03/17/17 19:45 Total Protein 8.0 g/dl (6.4-8.2) 03/17/17 19:45 Albumin 4.0 g/dl (3.4-5.0) 03/17/17 19:45 CARDIAC ENZYMES Creatine Kinase 230 IU/L (26-192) H 03/17/17 19:45 Troponin I < 0.02 ng/ml (0.00-0.05) 03/17/17 19:45 Current Medications Generic Name Dose Route Start Last Admin Trade Name Freq PRN Reason Stop Dose Admin Potassium Chloride 40 meq/ 1,020 mls @ 150 mls/hr 03/18/17 12:00 03/18/17 18:04 Sodium Chloride IVPB Not Given Q6H [facility] Insulin Aspart 1 vial 03/18/17 07:00 03/18/17 17:25 Novolog Vial Sliding Scale - SQ Not Given ACHS [facility] Protocol Metoclopramide HCl 10 mg 03/18/17 01:33 03/18/17 11:54 Reglan Injection - IVPUSH 10 mg Q6H PRN Administration NAUSEA AND/OR VOMITING Morphine Sulfate 2 mg 03/18/17 01:29 03/18/17 14:02 Morphine Injection - IVPUSH 2 mg Q4H PRN Administration PAIN Home Medications Medication Instructions Recorded Lovastatin 10 mg PO HS 11/03/11 Ramipril [Altace] 20 mg PO DAILY 11/03/11 Lisinopril [Prinivil] 20 mg PO DAILY 05/16/16 Albuterol Sulfate Inhaler - 2 inh IH Q6H #1 inh 10/22/16 [Ventolin HFA Inhaler -] Methylprednisolone [Medrol Dose 4 mg PO ASDIR #21 tablet 10/22/16 Ralf] Blood Sugar Diagnostic [Test 1 each MC TID 03/18/17 Strips] Cyclobenzaprine HCl [Flexeril -] 10 mg PO HS 03/18/17 Felodipine [Felodipine ER] 10 mg PO DAILY 03/18/17 Fluticasone Prop 0.05% Nasal 1 - 2 spray NS DAILY 03/18/17 [Flonase -] Insulin Glargine,Hum.rec.anlog 100 unit SQ HS 03/18/17 [Basaglar Kwikpen U-100] Lisinopril/Hydrochlorothiazide 1 each PO DAILY 03/18/17 [Lisinopril-Hctz 20-12.5 mg Tab] Metformin HCl 850 mg PO BID 03/18/17 Oxycodone HCl/Acetaminophen 1 each PO Q6H PRN 03/18/17 [Percocet 10-325 mg Tablet] Pantoprazole Sodium 40 mg PO DAILY 03/18/17 Potassium Chloride [K-Dur -] 10 meq PO DAILY 03/18/17 Simvastatin 20 mg PO HS 03/18/17 Abdomen: NAD, mild mid abdomen tenderness PE: rest per resident's note -CT Abdomen with gastrograffin: No acute pathology noted. Bowel non-distended with gastrograffin reaching distal colon. Pancreas and appendix normal. 7mm nonobstructing R renal pelvis stone noted. ASSESSMENT AND PLAN: 61 yo F pmhx of copd, htn, diabetes, hpl admitted for Acute gastroenteritis. # Acute Gastroenteritis improving continue IVF # Acute intractable nausea and vomiting on IVF continue #Lactic Acidosis: RESOLVED; 2.1 --> 0.8 # Acute hypokalemia on IVF 1/2NS w/ 40mEq KCl continue # T2DM ISS on board, BGM monitoring #HLD cont home meds #COPD Cont home meds DVT Px: Lovenox 40mg sq
[2017-03-18] MEDS ORDERED: ENOXAPARIN NA (PORCINE) 40 MG/0.4 ML DISP.SYRIN SQ ONE (20:05)
[2017-03-19] MEDS: METOCLOPRAMIDE HCL INJECTION 10 MG/2 ML VIAL IVPUSH PRN ×2 (00:51→12:39)
[2017-03-19] MEDS ORDERED: LOPERAMIDE HCL 2 MG CAPSULE PO PRN (01:31)
[2017-03-19] MEDS ORDERED: ACETAMINOPHEN 325 MG TABLET (FP) PO PRN ×2 (01:33→01:41)
[2017-03-19] MEDS ORDERED: morphine CARPU-JECT 2 MG/1 ML DISP.SYRIN IVPUSH PRN ×2 (01:35→01:41)
[2017-03-19] MEDS: morphine CARPU-JECT 4 MG/1 ML DISP.SYRIN IVPUSH PRN ×2 (02:08→08:08)
[2017-03-19] MEDS ORDERED: ONDANSETRON 8 MG TABLET (FP) PO PRN (04:25)
[2017-03-19] MEDS: ONDANSETRON 4 MG TABLET PO PRN ×2 (05:01→17:58)
[2017-03-19] MEDS: POTASSIUM CHLORIDE 40 MEQ in SODIUM CHLORIDE 0.45% 1,000 ML IVPB SCH ×5 (05:31→17:57)
[2017-03-19] MEDS: INSULIN SLIDING SCALE (NOVOLOG) 1 VIAL SQ SCH ×3 (06:10→16:33)
[2017-03-19 06:52] LABS: BASOPHIL 0.4 % (0-2.0); EOSINOPHIL 0.4 % (0-4.5); MCH 25.2 pg (25.7-33.7); MCHC 32.1 g/dl (32.0-36.0); MEAN CELL VOLUME 78.5 fl (80-96); MEAN PLT VOLUME 9.6 fl (7.5-11.1); PLATELET COUNT 258 K/MM3 (134-434); RDW 14.7 % (11.6-15.6); WHITE BLOOD COUNT 8.5 K/mm3 (4.0-10.0)
[2017-03-19 07:13] LABS: ALBUMIN 3.5 g/dl (3.4-5.0); ANION GAP 9 (8-16); BILIRUBIN,TOTAL 0.5 mg/dL (0.2-1.0); CALCIUM 8.8 mg/dL (8.5-10.1); CO2 26 mmol/L (21-32); CREATININE 0.7 mg/dL (0.55-1.02); GLUCOSE,RANDOM 119 mg/dL (74-106); SGOT/AST 20 U/L (15-37); SGPT/ALT 22 U/L (12-78); TOT PROT 7.3 g/dl (6.4-8.2)
[2017-03-19 07:14] LABS: ALK PHOS 111 U/L (45-117)
[2017-03-19] MEDS: DICYCLOMINE HCL 10 MG CAPSULE PO PRN ×2 (14:19→20:54)
[2017-03-19] MEDS ORDERED: RANITIDINE HCL 150 MG TABLET (FP) PO SCH (14:30)
[2017-03-19] MEDS ORDERED: morphine CARPU-JECT 2 MG/1 ML DISP.SYRIN IVPUSH ONE (17:09)
--- NOTE | 2017-03-19 17:16 | PN ---
Physical Exam: SUBJECTIVE: Patient seen and examined at bedside. No acute events overnight. Pt continues to complain of pain and nausea. No other complaints. ROS neg. OBJECTIVE: Vital Signs Period Temp Pulse Resp BP Sys/Malone Pulse Ox Last 24 Hr 98.3 F-99.8 F 66-85 16-21 151-159/77-97 94 GENERAL: The patient is awake, alert, and fully oriented, in no acute distress. HEAD: Normal with no signs of trauma. EYES: sclera anicteric, conjunctiva clear. No ptosis. ENT: oropharynx clear without exudates, moist mucous membranes. NECK: Trachea midline, full range of motion, supple. LUNGS: Breath sounds equal, clear to auscultation bilaterally, no wheezes, no crackles, no accessory muscle use. HEART: Regular rate and rhythm, normal S1, S2 without murmur, rub or gallop. ABDOMEN: Soft, nontender, nondistended, normoactive bowel sounds, no guarding, no rebound, no hepatosplenomegaly, no masses. EXTREMITIES: 2+ pulses, warm, well-perfused, no edema. NEUROLOGICAL: Normal speech, gait not observed. PSYCH: Normal mood, normal affect. SKIN: Warm, dry, normal turgor, no rashes or lesions noted Laboratory Results - last 24 hr 03/18/17 03/18/17 03/19/17 17:08 20:49 05:38 WBC RBC Hgb Hct MCV MCH MCHC RDW Plt Count MPV Neutrophils % Lymphocytes % Monocytes % Eosinophils % Basophils % Sodium Potassium Chloride Carbon Dioxide Anion Gap BUN Creatinine Creat Clearance w eGFR POC Glucometer 117 104 120 Random Glucose Calcium Total Bilirubin AST ALT Alkaline Phosphatase Total Protein Albumin 03/19/17 03/19/17 03/19/17 06:10 06:10 11:40 WBC 8.5 RBC 4.50 Hgb 11.4 Hct 35.3 MCV 78.5 L MCH 25.2 L MCHC 32.1 RDW 14.7 Plt Count 258 MPV 9.6 Neutrophils % 70.0 Lymphocytes % 23.3 D Monocytes % 5.9 D Eosinophils % 0.4 D Basophils % 0.4 Sodium 136 Potassium 3.9 Chloride 101 Carbon Dioxide 26 Anion Gap 9 BUN 10 Creatinine 0.7 Creat Clearance w eGFR > 60 POC Glucometer 110 Random Glucose 119 H Calcium 8.8 Total Bilirubin 0.5 D AST 20 D ALT 22 Alkaline Phosphatase 111 Total Protein 7.3 Albumin 3.5 Active Medications Generic Name Dose Route Start Last Admin Trade Name Freq PRN Reason Stop Dose Admin Acetaminophen 650 mg 03/19/17 01:41 03/19/17 06:58 Tylenol - PO 650 mg Q6H PRN Administration FEVER OR PAIN Dicyclomine HCl 10 mg 03/19/17 12:58 03/19/17 14:19 Bentyl - PO 10 mg Q8H PRN Administration MUSCLE SPASMS Potassium Chloride 40 meq/ 1,020 mls @ 150 mls/hr 03/18/17 12:00 03/19/17 12:49 Sodium Chloride IVPB 150 mls/hr Q6H AMOR Administration Insulin Aspart 1 vial 03/18/17 07:00 03/19/17 16:33 Novolog Vial Sliding Scale - SQ Not Given ACHS [facility] Protocol Metoclopramide HCl 10 mg 03/18/17 01:33 03/19/17 12:39 Reglan Injection - IVPUSH 10 mg Q6H PRN Administration NAUSEA AND/OR VOMITING Ondansetron HCl 8 mg 03/19/17 04:35 03/19/17 05:01 Zofran - PO 8 mg Q8H PRN Administration NAUSEA Ranitidine HCl 150 mg 03/19/17 14:30 03/19/17 15:43 Zantac - PO 150 mg DAILY [facility]OR Administration ASSESSMENT/PLAN: 61 yo F pmhx of copd, htn, diabetes, hpl admitted to obs for most likely gastroenteritis. Initial presentation of multiple episodes of vomiting, nausea, diffuse abdominal pain. Admitted to Obs for gastroenteritis #Gastroenteritis -CT Abdomen with gastrograffin: No acute pathology noted. Bowel non-distended with gastrograffin reaching distal colon. Pancreas and appendix normal. 7mm nonobstructing R renal pelvis stone noted. -GI consulted -diabetic gastroparesis unlikely because of acute timing and lack of ileus seen on CT scan -Continue Zofran and Reglan for nausea/vomiting -diabetic diet -Morphine for pain -UCx (contaminated sample. will repeat), UA #Lactic Acidosis: RESOLVED -from 2.1 to 0.8 #Diabetes -ISS on board -BGM monitoring #HLD -cont home meds #COPD -Cont home meds #FEN: -Fluids: 1/2NS w/ 40mEq KCl -Electrolytes: hypoK. repleted -Nutrition: Clear liquids for now #Dispo: Admit to observation Visit type - Emergency Visit Emergency Visit: No - New Patient This patient is new to me today: No - Critical Care Critical Care patient: No - Discharge Referral Referred to [facility] No
[2017-03-19] MEDS ORDERED: morphine CARPU-JECT 4 MG/1 ML DISP.SYRIN IVPUSH ONE (18:00)
[2017-03-19 19:01] VITALS: BP 157/96; PULSE 76; TEMP 98.7
--- NOTE | 2017-03-19 19:59 | PN ---
Teaching Attending Note Name of Resident: Brandon Serrano ATTENDING PHYSICIAN STATEMENT I saw and evaluated the patient. I reviewed the resident's note and discussed the case with the resident. I agree with the resident's findings and plan as documented. SUBJECTIVE: Patient continues to have abdominal pain. OBJECTIVE: Vital Signs Temperature 98.7 F 03/19/17 18:00 Pulse Rate 76 03/19/17 18:00 Respiratory Rate 21 03/19/17 18:00 Blood Pressure 157/96 03/19/17 18:00 O2 Sat by Pulse Oximetry (%) 94 L 03/19/17 15:00 CBCD WBC 8.5 K/mm3 (4.0-10.0) 03/19/17 06:10 RBC 4.50 M/mm3 (3.60-5.2) 03/19/17 06:10 Hgb 11.4 GM/dL (10.7-15.3) 03/19/17 06:10 Hct 35.3 % (32.4-45.2) 03/19/17 06:10 MCV 78.5 fl (80-96) L 03/19/17 06:10 MCHC 32.1 g/dl (32.0-36.0) 03/19/17 06:10 RDW 14.7 % (11.6-15.6) 03/19/17 06:10 Plt Count 258 K/MM3 (134-434) 03/19/17 06:10 MPV 9.6 fl (7.5-11.1) 03/19/17 06:10 CMP Sodium 136 mmol/L (136-145) 03/19/17 06:10 Potassium 3.9 mmol/L (3.5-5.1) 03/19/17 06:10 Chloride 101 mmol/L (98-107) 03/19/17 06:10 Carbon Dioxide 26 mmol/L (21-32) 03/19/17 06:10 Anion Gap 9 (8-16) 03/19/17 06:10 BUN 10 mg/dL (7-18) 03/19/17 06:10 Creatinine 0.7 mg/dL (0.55-1.02) 03/19/17 06:10 Creat Clearance w eGFR > 60 (>60) 03/19/17 06:10 Random Glucose 119 mg/dL (74-106) H 03/19/17 06:10 Calcium 8.8 mg/dL (8.5-10.1) 03/19/17 06:10 Total Bilirubin 0.5 mg/dL (0.2-1.0) D 03/19/17 06:10 AST 20 U/L (15-37) D 03/19/17 06:10 ALT 22 U/L (12-78) 03/19/17 06:10 Alkaline Phosphatase 111 U/L (45-117) 03/19/17 06:10 Total Protein 7.3 g/dl (6.4-8.2) 03/19/17 06:10 Albumin 3.5 g/dl (3.4-5.0) 03/19/17 06:10 CARDIAC ENZYMES Creatine Kinase 230 IU/L (26-192) H 03/17/17 19:45 Troponin I < 0.02 ng/ml (0.00-0.05) 03/17/17 19:45 Current Medications Generic Name Dose Route Start Last Admin Trade Name Sincereq PRN Reason Stop Dose Admin Acetaminophen 650 mg 03/19/17 01:41 03/19/17 06:58 Tylenol - PO 650 mg Q6H PRN Administration FEVER OR PAIN Dicyclomine HCl 10 mg 03/19/17 12:58 03/19/17 14:19 Bentyl - PO 10 mg Q8H PRN Administration MUSCLE SPASMS Potassium Chloride 40 meq/ 1,020 mls @ 150 mls/hr 03/18/17 12:00 03/19/17 17:57 Sodium Chloride IVPB Not Given Q6H [facility] Insulin Aspart 1 vial 03/18/17 07:00 03/19/17 16:33 Novolog Vial Sliding Scale - SQ Not Given ACHS [facility] Protocol Metoclopramide HCl 10 mg 03/18/17 01:33 03/19/17 12:39 Reglan Injection - IVPUSH 10 mg Q6H PRN Administration NAUSEA AND/OR VOMITING Ondansetron HCl 8 mg 03/19/17 04:35 03/19/17 17:58 Zofran - PO 8 mg Q8H PRN Administration NAUSEA Ranitidine HCl 150 mg 03/19/17 14:30 03/19/17 15:43 Zantac - PO 150 mg DAILY [facility] Administration Home Medications Medication Instructions Recorded Lovastatin 10 mg PO HS 11/03/11 Ramipril [Altace] 20 mg PO DAILY 11/03/11 Lisinopril [Prinivil] 20 mg PO DAILY 05/16/16 Albuterol Sulfate Inhaler - 2 inh IH Q6H #1 inh 10/22/16 [Ventolin HFA Inhaler -] Methylprednisolone [Medrol Dose 4 mg PO ASDIR #21 tablet 10/22/16 Ralf] Blood Sugar Diagnostic [Test 1 each MC TID 03/18/17 Strips] Cyclobenzaprine HCl [Flexeril -] 10 mg PO HS 03/18/17 Felodipine [Felodipine ER] 10 mg PO DAILY 03/18/17 Fluticasone Prop 0.05% Nasal 1 - 2 spray NS DAILY 03/18/17 [Flonase -] Insulin Glargine,Hum.rec.anlog 100 unit SQ HS 03/18/17 [Basaglar Kwikpen U-100] Lisinopril/Hydrochlorothiazide 1 each PO DAILY 03/18/17 [Lisinopril-Hctz 20-12.5 mg Tab] Metformin HCl 850 mg PO BID 03/18/17 Oxycodone HCl/Acetaminophen 1 each PO Q6H PRN 03/18/17 [Percocet 10-325 mg Tablet] Pantoprazole Sodium 40 mg PO DAILY 03/18/17 Potassium Chloride [K-Dur -] 10 meq PO DAILY 03/18/17 Simvastatin 20 mg PO HS 03/18/17 Abdomen: midepigastric pain with tenderness PE: rest per resident's note CT Abdomen with gastrograffin: No acute pathology noted. Bowel non-distended with gastrograffin reaching distal colon. Pancreas and appendix normal. 7mm nonobstructing R renal pelvis stone noted. ASSESSMENT AND PLAN: 61 yo F pmhx of copd, htn, diabetes, hpl admitted for Acute gastroenteritis. # Acute Gastroenteritis continues to have severe pain , continue Pain meds. Morphine IV ordered. # Acute intractable nausea and vomiting continues on IVF continue will Reglan for possible Gastroparesis. #Lactic Acidosis: RESOLVED; 2.1 --> 0.8 # s/p Acute hypokalemia now normalized since repleted. # T2DM ISS on board, BGM monitoring can't r/o Gastroparesis, GI consult appreciated. #HLD cont home meds #COPD Cont home meds DVT Px: Lovenox 40mg sq
[2017-03-19] MEDS ORDERED: DICYCLOMINE HCL 10 MG CAPSULE PO ONE (20:02)
[2017-03-19] MEDS ORDERED: morphine CARPU-JECT 4 MG/1 ML DISP.SYRIN IVPUSH PRN (20:07)
[2017-03-19] MEDS ORDERED: ONDANSETRON 4 MG TABLET PO PRN (20:07)
[2017-03-19] MEDS ORDERED: SODIUM CHLORIDE 0.45% 1,000 ML IV SCH (20:15)
[2017-03-19] MEDS ORDERED: INSULIN (NOVOLOG) ASPART 100 UNITS/ML 10ML VIAL ONE (21:12)
--- NOTE | 2017-03-23 07:52 | DS ---
Physical Exam: SUBJECTIVE: Patient seen and examined at bedside. Pt had complaint of abdominal pain. OBJECTIVE: PHYSICAL EXAM GENERAL: The patient is awake, alert, and fully oriented, in no acute distress. HEAD: Normal with no signs of trauma. EYES: sclera anicteric, conjunctiva clear. No ptosis. ENT: oropharynx clear without exudates, moist mucous membranes. NECK: Trachea midline, full range of motion, supple. LUNGS: Breath sounds equal, clear to auscultation bilaterally, no wheezes, no crackles, no accessory muscle use. HEART: Regular rate and rhythm, normal S1, S2 without murmur, rub or gallop. ABDOMEN: Soft, nontender, nondistended, normoactive bowel sounds, no guarding, no rebound, no hepatosplenomegaly, no masses. EXTREMITIES: 2+ pulses, warm, well-perfused, no edema. NEUROLOGICAL: Normal speech, gait not observed. PSYCH: Normal mood, normal affect. SKIN: Warm, dry, normal turgor, no rashes or lesions noted LABS HOSPITAL COURSE: Date of Admission:03/18/17 Date of Discharge: 03/23/17 61 yo F pmhx of copd, htn, diabetes, hpl admitted to obs for most likely gastroenteritis. Initial presentation of multiple episodes of vomiting, nausea, diffuse abdominal pain. Admitted to Obs for gastroenteritis. Pt was made inpatient. Pt was determined to have gastroenteritis. CT Abdomen with gastrograffin showed no acute pathology. Bowel was non-distended with gastrograffin reaching distal colon. Pancreas and appendix were normal. A 7mm nonobstructing R renal pelvis stone noted. GI was consulted; diabetic gastroparesis was felt to be unlikely because of acute timing and lack of ileus seen on CT scan. Pt received Zofran and Reglan for nausea/vomiting and a diabetic diet. The patient was given Morphine for pain. At one point, the patient decided to leave the hospital AMA, stating that she felt she would receive better care elsewhere. On admission, the patient had a lactic acidosis, which resolved with IVF. The patient was also found to have low K+ which was repleted. Minutes to complete discharge: 45 Discharge Summary Reason For Visit: NAUSEA AND VOMITING, ABDOMINAL PAIN Condition: Stable - Instructions Diet, Activity, Other Instructions: Patient left Against Medical Advice on 03/19/2017 at 21:40 The patient adamently refused hospitalization and wanted to leave against medical advice. Her two daughters were present in the room. I explained to the patient and her family that leaving AMA is dangerous and can lead to worsening of her condition. I used lay terminology, and answered all questions respectfully. It is clear to me that she understands the benefits of continuous hospital stay and the risks of leaving AMA. She has the capacity to make her own decisions and agrees to follow with her primary care doctor. The patient stated she was going to [facility] where her primary doctor works. We gave the patient information about obtaining her medical records. She understands that she should return to an Emergency Room if her symptoms worsen. Disposition: AGAINST MEDICAL ADVICE - Home Medications Comprehensive Discharge Medication List: Ambulatory Orders Lovastatin 10 mg PO HS 11/03/11 Ramipril [Altace] 20 mg PO DAILY 11/03/11 Lisinopril [Prinivil] 20 mg PO DAILY 05/16/16 Albuterol Sulfate Inhaler - [Ventolin HFA Inhaler -] 2 inh IH Q6H #1 inh Methylprednisolone [Medrol Dose Ralf] 4 mg PO ASDIR #21 tablet 10/22/16 Blood Sugar Diagnostic [Test Strips] 1 each MC TID 03/18/17 Cyclobenzaprine HCl [Flexeril -] 10 mg PO HS 03/18/17 Felodipine [Felodipine ER] 10 mg PO DAILY 03/18/17 Fluticasone Prop 0.05% Nasal [Flonase -] 1 - 2 spray NS DAILY 03/18/17 Insulin Glargine,Hum.rec.anlog [Basaglar Jhonathanikpen U-100] 100 unit SQ HS 03/18/17 Lisinopril/Hydrochlorothiazide [Lisinopril-Hctz 20-12.5 mg Tab] 1 each PO DAILY 03/18/17 Metformin HCl 850 mg PO BID 03/18/17 Oxycodone HCl/Acetaminophen [Percocet 10-325 mg Tablet] 1 each PO Q6H PRN Pantoprazole Sodium 40 mg PO DAILY 03/18/17 Potassium Chloride [K-Dur -] 10 meq PO DAILY 03/18/17 Simvastatin 20 mg PO HS 03/18/17 - Discharge Referral Referred to [facility] No
== END 2017-03-19 21:30 | disposition left against medical advice (07) ==
LOC: JER 18:45 → JERBED 03-18 00:32 → J6S 03-18 02:27
PROVIDERS: ADMIT Internal Medicine; ATTEND Internal Medicine
PROC: 3E033NZ Introduction of Analgesics, Hypnotics, Sedatives into Peripheral Vein, Percutaneous Approach (ICD-10-PCS; principal; 2017-03-18)
PROC: 3E033GC Introduction of Other Therapeutic Substance into Peripheral Vein, Percutaneous Approach (ICD-10-PCS; 2017-03-18)
PROC: 3E0337Z Introduction of Electrolytic and Water Balance Substance into Peripheral Vein, Percutaneous Approach (ICD-10-PCS; 2017-03-18)
DX: K52.9 Noninfective gastroenteritis and colitis, unspecified (principal); E86.0 Dehydration; R10.84 Generalized abdominal pain; R11.2 Nausea with vomiting, unspecified; I10 Essential (primary) hypertension; E11.9 Type 2 diabetes mellitus without complications; E78.5 Hyperlipidemia, unspecified; E87.6 Hypokalemia; J44.9 Chronic obstructive pulmonary disease, unspecified; Z79.84 Long term (current) use of oral hypoglycemic drugs; Z79.4 Long term (current) use of insulin; E87.2 Acidosis
CPT/HCPCS: 36415; 71010-TC; 74176-TC; 76705-TC; 80048; 80053; 81003; 81015; 82553; 83605; 83690; 84484; 85025; 87086; 93005; 93010; 99284-25; G0378; Q9967

== ENCOUNTER 2017-05-03 05:54 | Inpatient (IN) | payer OTHER ==
[2017-04-20 11:32] VITALS: BMI 35.6
[2017-05-03] MEDS ORDERED: DEXAMETHASONE SOD PHOSPHATE/PF 10 MG/ML SDV ONE (06:59)
[2017-05-03] MEDS ORDERED: MIDAZOLAM HCL 2 MG/2 ML SINGLE DOSE VIAL ONE (06:59)
[2017-05-03] MEDS ORDERED: ROPIVACAINE HCL 0.5% 30ML VIAL ONE (07:00)
[2017-05-03] MEDS ORDERED: PANTOPRAZOLE 40 MG TABLET (FP) PO ONE (07:02)
[2017-05-03] MEDS ORDERED: ceFAZolin SODIUM 1 GM VIAL ONE (07:16)
[2017-05-03] MEDS ORDERED: VANCOMYCIN 1,000 MG VIAL (RESTRICTED TO ID ONLY) ONE (07:16)
[2017-05-03] MEDS ORDERED: TRANEXAMIC ACID 1000 MG/10 ML VIAL IVPUSH ONE (07:17)
[2017-05-03] MEDS ORDERED: CEFAZOLIN 2 GM in DEXTROSE 5%-WATER - 50 ML IVPB ONE (07:17)
[2017-05-03] MEDS ORDERED: ROPIVICAINE 0.2%/MORPH PF/KETOROLAC - 51ML DISP.SYRINGE IA ONE ×2 (07:17→10:08)
[2017-05-03] MEDS: oxyCODONE HCL 10 MG SUSTAINED ACTING TABLET PO ONE ×2 (07:20→19:09)
[2017-05-03] MEDS: GABAPENTIN 300 MG CAPSULE (FP) PO ONE ×2 (07:20→19:09)
[2017-05-03] MEDS: CELECOXIB 200 MG CAPSULE PO ONE ×2 (07:20→19:08)
[2017-05-03] MEDS ORDERED: PROPOFOL 20 ML ONE ×2 (07:39)
[2017-05-03] MEDS ORDERED: DEXAMETHASONE SOD PHOSPHATE 4 MG/1 ML VIAL ONE (07:39)
[2017-05-03] MEDS ORDERED: ONDANSETRON 4 MG/2 ML VIAL ONE ×2 (07:39→10:25)
[2017-05-03] MEDS ORDERED: BUPIVACAINE HCL/PF 0.5% (5MG/ML) 10 ML VIAL ONE (07:49)
[2017-05-03] MEDS ORDERED: TRANEXAMIC ACID 1000 MG/10 ML VIAL ONE ×2 (07:50→10:22)
--- NOTE | 2017-05-03 07:50 | HP ---
Admitting History and Physical - Admission Chief Complaint: Right knee osteoarthritis x years History of Present Illness: 61 year old female presenting in regard to her right knee. Longstanding history of right knee osteoarthritis. Patient complains of pain, limited ROM, difficulty ambulating and difficulty with ADLs. Patient has failed conservative treatment measures including PO medication, activity modification, injections and exercise program. Patient would like to proceed with a right total knee arthroplasty. History Source: Patient - Past Medical History Cardiovascular: Yes: HTN ...: No ENT: Yes: Allergic Rhinitis Endocrine: Yes: Diabetes Mellitus - Past Surgical History Additional Past Surgical History: See written H&P - Smoking History Smoking history: Never smoked Have you smoked in the past 12 months: No Aproximately how many cigarettes per day: 0 - Alcohol/Substance Use Hx Alcohol Use: No Home Medications - Allergies Allergies/Adverse Reactions: Allergies Allergy/AdvReac Type Severity Reaction Status Date / Time No Known Drug Allergies Allergy Verified 04/20/17 11:15 - Home Medications Home Medications: Ambulatory Orders Ramipril [Altace] 20 mg PO DAILY 11/03/11 Cyclobenzaprine HCl [Flexeril -] 10 mg PO HS PRN 03/18/17 Felodipine [Felodipine ER] 10 mg PO DAILY 03/18/17 Fluticasone Prop 0.05% Nasal [Flonase -] 1 - 2 spray NS DAILY PRN 03/18/17 Insulin Glargine,Hum.rec.anlog [Basaglar Kwikpen U-100] 15 unit SQ HS 03/18/17 Lisinopril/Hydrochlorothiazide [Lisinopril-Hctz 20-12.5 mg Tab] 1 each PO DAILY 03/18/17 Metformin HCl 850 mg PO BID 03/18/17 Oxycodone HCl/Acetaminophen [Percocet 10-325 mg Tablet] 1 each PO Q6H PRN Pantoprazole Sodium 40 mg PO DAILY 03/18/17 Potassium Chloride [K-Dur -] 10 meq PO DAILY 03/18/17 Simvastatin 20 mg PO HS 03/18/17 Salmeterol/Fluticasone [Advair 100Mcg/50Mcg -] 1 inh PO BID PRN 05/03/17 Review of Systems - Review of Systems Musculoskeletal: reports: Crepitus (right knee), Decreased ROM (right knee), Joint Pain (right knee), Joint Swelling (right knee) Physical Examination Vital Signs: Vital Signs Temperature 97.9 F 05/03/17 06:42 Pulse Rate 75 05/03/17 06:42 Respiratory Rate 16 05/03/17 06:42 Blood Pressure 146/92 05/03/17 06:42 O2 Sat by Pulse Oximetry (%) Constitutional: Yes: Well Nourished, No Distress Eyes: Yes: Conjunctiva Clear HENT: Yes: Atraumatic, Normocephalic Neck: Yes: Supple Cardiovascular: Yes: Regular Rate and Rhythm Respiratory: Yes: Regular Gastrointestinal: Yes: Soft ...Rectal Exam: Yes: Deferred Musculoskeletal: Yes: Joint Stiffness (right knee), Joint Swelling (right knee) Assessment/Plan 61 year old female presenting in regard to her right knee. Longstanding history of right knee osteoarthritis. Patient complains of pain, limited ROM, difficulty ambulating and difficulty with ADLs. Patient has failed conservative treatment measures. Proceed with right total knee arthroplasty.
[2017-05-03] MEDS ORDERED: TRANEXAMIC ACID 1000 MG/10 ML VIAL IVPB ONE (10:07)
[2017-05-03] MEDS ORDERED: VANCOMYCIN 1,000 MG VIAL (RESTRICTED TO ID ONLY) IVPB ONE (10:08)
--- NOTE | 2017-05-03 10:52 | OP ---
Operative Note - Note: Operative Date: 05/03/17 Pre-Operative Diagnosis: right knee OA Operation: right TKA Post-Operative Diagnosis: Same as Pre-op Surgeon: Luis Miguel Barrett Student Records Coordinator: Amalia Bishop Anesthesia: Spinal Estimated Blood Loss (mls): 100
[2017-05-03] MEDS ORDERED: traMADol HCL 50 MG TABLET ONE (11:39)
[2017-05-03] MEDS ORDERED: MAGNESIUM HYDROX 2400MG/30ML ORAL SUSPENSION 30 ML CUP PO PRN (11:39)
[2017-05-03] MEDS ORDERED: ONDANSETRON 4 MG/2 ML VIAL IVPB PRN (11:39)
[2017-05-03] MEDS ORDERED: KETOROLAC TROMETHAMINE 30 MG/1 ML VIAL ONE (11:39)
[2017-05-03] MEDS: KETOROLAC TROMETHAMINE 30 MG/1 ML VIAL IVPUSH SCH ×4 (11:39→23:45)
[2017-05-03] MEDS ORDERED: MAG HYDROX/AL HYDROX/SIMETH 30 ML UNIT-DOSE CUP PO PRN (11:39)
[2017-05-03] MEDS ORDERED: ACETAMINOPHEN INJECTION 100 ML IVPB ONE (11:40)
[2017-05-03] MEDS ORDERED: LACTATED RINGERS SOLUTION 1,000 ML IV SCH (11:45)
[2017-05-03] MEDS: ACETAMINOPHEN 1000 MG/100 ML VIAL (NON FORMULARY) IVPB ONE ×2 (11:45→19:10)
[2017-05-03] MEDS: traMADol HCL 50 MG TABLET PO SCH ×6 (11:47→23:45)
[2017-05-03] MEDS ORDERED: oxyCODONE HCL 5 MG TABLET PO PRN (11:49)
[2017-05-03] MEDS: oxyCODONE HCL 5 MG TABLET PO PRN ×3 (12:38→22:18)
[2017-05-03] MEDS ORDERED: FLUTICASONE/SALMETEROL 100 MCG/50 MCG DISKUS IH PRN (13:00)
[2017-05-03] MEDS ORDERED: FLUTICASONE PROP 0.05% 16 GM NASAL SPRAY NS PRN (13:01)
[2017-05-03] MEDS: ACETAMINOPHEN 325 MG TABLET (FP) PO SCH ×2 (17:20→23:44)
[2017-05-03] MEDS: CEFAZOLIN 2 GM/D5W 50 ML IVPB SCH (17:20)
[2017-05-03] MEDS ORDERED: GABAPENTIN 300 MG CAPSULE (FP) PO SCH (22:00)
[2017-05-03] MEDS ORDERED: PATIENT'S OWN MEDICATION (NON-FORMULARY) (Simvastatin [Simvastatin] 20 MG) PO SCH (22:00)
[2017-05-03] MEDS ORDERED: PATIENT'S OWN MEDICATION (NON-FORMULARY) (Insulin Glargine,Hum.Rec.Anlog [Basaglar Kwikpen SQ SCH (22:00)
[2017-05-03] MEDS: oxyCODONE HCL 10 MG SUSTAINED ACTING TABLET PO SCH (22:18)
[2017-05-03] MEDS: CELECOXIB 200 MG CAPSULE PO SCH (22:18)
[2017-05-03] MEDS: ASCORBIC ACID 500 MG TABLET (FP) PO SCH (22:18)
[2017-05-03] MEDS: SENNOSIDES/DOCUSATE COMBO (SENNA PLUS) TABLET (UD) PO SCH (22:19)
[2017-05-03] MEDS: ATORVASTATIN CA 10 MG TABLET (FP) PO SCH (22:19)
[2017-05-03] MEDS: GABAPENTIN 300 MG CAPSULE (FP) PO SCH (22:19)
[2017-05-03] MEDS: INSULIN DETEMIR 100 UNITS/ML MDV SQ SCH (22:21)
[2017-05-04] MEDS: CEFAZOLIN 2 GM/D5W 50 ML IVPB SCH (01:37)
[2017-05-04] MEDS: oxyCODONE HCL 5 MG TABLET PO PRN ×4 (04:57→19:42)
[2017-05-04] MEDS: ACETAMINOPHEN 325 MG TABLET (FP) PO SCH ×3 (05:02→17:24)
[2017-05-04] MEDS: KETOROLAC TROMETHAMINE 30 MG/1 ML VIAL IVPUSH SCH (05:02)
[2017-05-04] MEDS: traMADol HCL 50 MG TABLET PO SCH ×3 (05:03→17:23)
[2017-05-04] MEDS: ASPIRIN 325 MG TABLET PO SCH (08:15)
[2017-05-04 08:32] LABS: MCH 25.7 pg (25.7-33.7); MCHC 32.5 g/dl (32.0-36.0); MEAN CELL VOLUME 79.1 fl (80-96); MEAN PLT VOLUME 10.6 fl (7.5-11.1); PLATELET COUNT 256 K/MM3 (134-434); RDW 14.5 % (11.6-15.6); WHITE BLOOD COUNT 10.8 K/mm3 (4.0-10.8)
[2017-05-04 08:36] LABS: ANION GAP 10 (8-16); CALCIUM 9.3 mg/dl (8.4-10.2); CO2 24 mmol/L (22-28); CREATININE 1.6 mg/dl (0.6-1.3); GLUCOSE,RANDOM 121 mg/dl (74-106)
[2017-05-04] MEDS: MULTIVITAMINS (DAILY MVI) TABLET (FP) PO SCH (09:26)
[2017-05-04] MEDS: PANTOPRAZOLE 40 MG TABLET (FP) PO SCH (09:27)
[2017-05-04] MEDS: POTASSIUM CHLORIDE TABS 10 MEQ TABLET.ER (FP) PO SCH (09:27)
[2017-05-04] MEDS: SENNOSIDES/DOCUSATE COMBO (SENNA PLUS) TABLET (UD) PO SCH ×2 (09:27→21:28)
[2017-05-04] MEDS: ASCORBIC ACID 500 MG TABLET (FP) PO SCH ×2 (09:27→21:28)
[2017-05-04] MEDS: CELECOXIB 200 MG CAPSULE PO SCH (09:27)
[2017-05-04] MEDS: GABAPENTIN 300 MG CAPSULE (FP) PO SCH ×2 (09:27→21:28)
[2017-05-04] MEDS: oxyCODONE HCL 10 MG SUSTAINED ACTING TABLET PO SCH ×2 (09:28→21:28)
[2017-05-04] MEDS ORDERED: PATIENT'S OWN MEDICATION (NON-FORMULARY) (Lisinopril/Hydrochlorothiazide [Lisinopril-Hctz PO SCH (10:00)
[2017-05-04] MEDS ORDERED: RAMIPRIL 20 MG PO SCH (10:00)
--- NOTE | 2017-05-04 10:14 | SPEC ---
DATE OF OPERATION: 05/03/2017 PREOPERATIVE DIAGNOSIS: Right knee osteoarthritis. POSTOPERATIVE DIAGNOSIS: Right knee osteoarthritis. PROCEDURE: Right total knee replacement. ATTENDING: Huma Hill MD MILK VENDOR: TADEO Enamorado ANESTHESIA: Spinal plus sedation. ESTIMATED BLOOD LOSS: 100 mL COMPLICATIONS: None. DISPOSITION: The patient was transferred to the PACU in stable condition. SPECIMENS: Resected bone was sent for pathological analysis. IMPLANTS USED: Abel Triathlon size 5 femoral component, size 4 tibial component, 32-mm patellar component, 11-mm polyethylene component. INDICATIONS: This is a 61-year-old female who presented to the office complaining of severe right knee pain. She was seen and examined by Dr. Hill and diagnosed with severe right knee osteoarthritis. The patient was initially treated nonoperatively with injections, medications, and physical therapy but failed conservative managements. She was subsequently indicated for total knee replacement. The risks, benefits, and alternatives to the procedure were explained to the patient in great detail, and she elected to proceed with the surgery. DESCRIPTION OF PROCEDURE: On the day of surgery, the patient was taken to the operating room and placed on the OR table. Spinal anesthesia was administered by the anesthesiologist. The patient was then positioned supine on the table and all bony prominences were padded. A nonsterile tourniquet was placed on the proximal thigh. The knee was then prepped and draped in the usual sterile fashion and intravenous antibiotics were given for infection prophylaxis. A surgical time-out was then performed with the team, and the patients identity, procedure, side, availability of implants, and the administration of antibiotics was confirmed. The leg was then elevated and exsanguinated, and the tourniquet was inflated. With the knee flexed, a midline incision was made and carried down through the subcutaneous fat to the underlying retinaculum. A medial parapatellar arthrotomy was performed. This was followed by a subperiosteal dissection of the tissue off the proximal, medial tibia. A portion of fat pad was removed from under the patellar tendon, and a small portion of fat was excised off the distal supracondylar femur. The knee was then flexed further and the anterior horn of the lateral meniscus was released from the midline. Next, the anterior and posterior cruciate ligaments were transected. Osteophytes were removed from both the femur and tibia. Grade 4 changes were noted diffusely throughout the knee. Hohmann retractors were then placed around the distal femur. The starting drill was used to enter the intramedullary canal. The starting point had been chosen by checking the radiographs and anatomy. Proper alignment and intramedullary placement was then confirmed by placing the long narrow peewee into the femur. Next, the distal femoral cutting guide was adjusted to 6 degrees of valgus and pinned to the femur. The bone resection was assessed using an cayetano-wing. An approximately 10mm distal cut was made and the cut pieces measured. Once this was complete, the sizing guide was used to determine which size femoral component should be used. Next, the appropriately sized 4-in-1 cutting block was then placed at the correct amount of external rotation and the cayetano wing was used to assure that there would be no notching of the anterior cortex of the femur. Once this was done, Hohmann retractors were used to protect the medial and lateral collateral ligaments, and all appropriate bone cuts were made. Attention was then turned to the tibia. Hohmann retractors were used to translate the tibia anteriorly and protect the collateral ligaments. The medial and lateral menisci were removed. The extramedullary tibial alignment guide was then placed and adjusted for rotation, varus/valgus, and slope. The height of the cutting block was adjusted to the level of the desired bone resection and then pinned in place. The proximal tibia was then cut with a saw and the bone was removed and measured. Once this was completed, trial components were placed and the knee was taken through a full range of motion. Soft tissue balance was assessed in both flexion and extension and found to be appropriate. The knee was stable throughout the full range of motion. The knee was then put into extension and the patella everted. The synovium around the patella was circumscribed with electrocautery. A caliper was used to measure the patellar thickness and a saw was then used to resect the patella at the chondro-osseous junction. The cut surface was then sized and drilled for the appropriate patellar button, with care taken to medialize it. A trial patella was then placed and the knee was again taken through a full range of motion. The knee was found to have both good balance and good patellar tracking. All of the components were removed except the tibial base plate. The appropriate instrumentation was used to drill and punch the proximal tibia for the keel of the final component. All bony surfaces were then cleaned with pulsatile lavage and dried. Bone cement was then prepared on the back table, and final components were cemented in place in the usual fashion. Extruded cement was removed. The polyethylene trial was placed, the knee was put into extension, and axial pressure was applied for compression while the cement hardened. The patellar button was similarly cemented into place. Once the cement had hardened, the knee was taken through a full range of motion to assess stability, balance, and patellar tracking. This was found to be optimal and the trial polyethylene was exchanged for the appropriately sized real implant. The wound was then thoroughly irrigated with normal saline. No. 1 Polysorb and 0 VLoc 180 barbed sutures were used to close the arthrotomy. No. 1 Polysorb and 2-0 Polysorb sutures were used in the subcutaneous tissues. The skin was closed using both 3-0 VLoc 90 suture in a running subcuticular fashion and SwiftSet skin adhesive. Once this was completed a sterile Aquacel dressing and compressive Emigdio-wrap was applied. The tourniquet was then deflated and the patient was awakened and taken to the PACU in stable condition. ADDENDUM: After final components were placed, a 3-minute dilute Betadine lavage was performed following the VADER protocol. This was followed by copious irrigation via normal saline pulsatile lavage, and then, wound closure was begun. HUMA HILL M.D. [id number]
[2017-05-04] MEDS: FELODIPINE PO SCH (12:19)
[2017-05-04] MEDS: PATIENT'S OWN MEDICATION (NON-FORMULARY) (Lisinopril/Hydrochlorothiazide [Lisinopril-Hctz PO SCH (12:20)
[2017-05-04] MEDS: ATORVASTATIN CA 10 MG TABLET (FP) PO SCH (21:28)
[2017-05-04] MEDS: INSULIN DETEMIR 100 UNITS/ML MDV SQ SCH (21:30)
[2017-05-05] MEDS: ACETAMINOPHEN 325 MG TABLET (FP) PO SCH ×3 (00:12→12:56)
[2017-05-05] MEDS: traMADol HCL 50 MG TABLET PO SCH ×3 (00:13→12:57)
[2017-05-05] MEDS: oxyCODONE HCL 5 MG TABLET PO PRN ×3 (01:41→10:06)
--- NOTE | 2017-05-05 08:10 | PN ---
Progress Note (short form) - Note Progress Note: Pt seen and examined yesterday evening. Doing well. Afebrile Selected Entries 05/04/17 05/05/17 22:58 06:18 Temperature 97.5 F L 97.8 F Pulse Rate 63 Respiratory 18 19 Rate Blood Pressure 122/62 97/46 O2 Sat by Pulse 94 L 93 L Oximetry (%) Oxygen Delivery Room Air Room Air Method Laboratory Tests 05/04/17 05/04/17 05/04/17 05:54 07:30 07:30 WBC 10.8 Hgb 10.0 L Hct 30.7 L Sodium 135 L Potassium 4.5 Chloride 101 Carbon Dioxide 24 Anion Gap 10 BUN 38 H Creatinine 1.6 H POC Glucometer 109 Random Glucose 121 H Calcium 9.3 05/04/17 05/04/17 05/05/17 16:07 21:08 06:13 WBC Hgb Hct Sodium Potassium Chloride Carbon Dioxide Anion Gap BUN Creatinine POC Glucometer 83 152 97 Random Glucose Calcium Gen: NAD RLE: c/d/i, NVID A/P 61yo female POD#1 s/p R TKA 1. PT/OOB 2. D/C home today; f/u in office in 10-14 days.
--- NOTE | 2017-05-05 08:12 | DS ---
Physical Examination Vital Signs: Vital Signs Temperature 97.8 F 05/05/17 06:18 Pulse Rate 63 05/05/17 06:18 Respiratory Rate 19 05/05/17 06:18 Blood Pressure 97/46 05/05/17 06:18 O2 Sat by Pulse Oximetry (%) 93 L 05/05/17 06:18 Discharge Summary Reason For Visit: RIGHT KNEE OSTEOARTHRITIS Current Active Problems Osteoarthritis of right knee (Acute) Procedures: Principal: right TKA Hospital Course: Admitted for elective surgery. Procedure performed without complications. Pt received postoperative antibiotic prophylaxis and DVT ppx. Ambulated with physical therapy. Stable for discharge home with outpatient followup. Condition: Stable - Instructions Diet, Activity, Other Instructions: Dr. Barrett - Knee Replacement Instructions Keep the Aquacel dressing on until removed by Dr. Barrett in 10-14 days - it is antibacterial and waterproof and you can shower with it on. Call the office for a follow-up appointment with Dr. Barrett in 10-14 days. Take one Aspirin 325mg daily for 6 weeks to prevent blood clots in your legs. Take one Pantoprazole 40mg daily for 6 weeks to protect against heartburn and ulcers. Take a multivitamin, extra vitamin C supplement, and stool softener daily. For pain: *Mild pain (1-3/10): Take 1 Tramadol tablet every 4 hours as needed. Moderate pain (4-6/10): Take 1 Tramadol tablet and 1 Percocet tablet every 4 hours as needed. Severe pain (7-10/10): Take 1 Tramadol tablet and 2 Percocet tablets every 4 hours as needed. Activity: You can put as much weight on the operative leg as you want. Right after you get home, there will be a physical therapist coming to your house to help you walk around and bend/straighten your knee. After your follow-up appointment, you will be sent for more intensive outpatient physical therapy which will include machines and equipment that the home therapist cannot bring to your house. Always use a walker or cane for balance and to prevent falls. Disposition: VNS/HOME HEALTH CARE - Home Medications Comprehensive Discharge Medication List: Ambulatory Orders Ramipril [Altace] 20 mg PO DAILY 11/03/11 Cyclobenzaprine HCl [Flexeril -] 10 mg PO HS PRN 03/18/17 Felodipine [Felodipine ER] 10 mg PO DAILY 03/18/17 Fluticasone Prop 0.05% Nasal [Flonase -] 1 - 2 spray NS DAILY PRN 03/18/17 Insulin Glargine,Hum.rec.anlog [Apoorvaaglangelo Grandajulian U-100] 15 unit SQ HS 03/18/17 Lisinopril/Hydrochlorothiazide [Lisinopril-Hctz 20-12.5 mg Tab] 1 each PO DAILY 03/18/17 Metformin HCl 850 mg PO BID 03/18/17 Pantoprazole Sodium 40 mg PO DAILY 03/18/17 Potassium Chloride [K-Dur -] 10 meq PO DAILY 03/18/17 Simvastatin 20 mg PO HS 03/18/17 Salmeterol/Fluticasone [Advair 100Mcg/50Mcg -] 1 inh PO BID PRN 05/03/17 Ascorbic Acid [Vitamin C -] 500 mg PO BID tablet 05/05/17 Aspirin [ASA -] 325 mg PO DAILY@0800 tablet 05/05/17 Multivitamins [Multivit ([facility] Formul[facility])] 1 tab PO DAILY tab 05/05/17 Oxycodone HCl/Acetaminophen [Percocet 5-325 mg Tablet] 1 - 2 tab PO Q4H PRN #60 tablet MDD 10 05/05/17 Pantoprazole Sodium [Protonix -] 40 mg PO DAILY #40 tab 05/05/17 Sennosides/Docusate Sodium [Pericolace -] 2 tablet PO BID tablet 05/05/17 Tramadol HCl [Ultram -] 50 mg PO Q4H PRN #90 tablet MDD 6 05/05/17
[2017-05-05 08:16] LABS: MCH 25.5 pg (25.7-33.7); MCHC 32.1 g/dl (32.0-36.0); MEAN CELL VOLUME 79.7 fl (80-96); MEAN PLT VOLUME 10.4 fl (7.5-11.1); PLATELET COUNT 231 K/MM3 (134-434); RDW 14.9 % (11.6-15.6); WHITE BLOOD COUNT 9.8 K/mm3 (4.0-10.8)
[2017-05-05 08:28] LABS: ANION GAP 3 (8-16); CALCIUM 8.9 mg/dl (8.4-10.2); CO2 26 mmol/L (22-28); CREATININE 1.4 mg/dl (0.6-1.3); GLUCOSE,RANDOM 91 mg/dl (74-106)
[2017-05-05] MEDS: ASPIRIN 325 MG TABLET PO SCH (08:30)
[2017-05-05] MEDS ORDERED: PT OWN MED DRAWER 7, Y5N ONE ×3 (09:55→09:59)
[2017-05-05] MEDS: ASCORBIC ACID 500 MG TABLET (FP) PO SCH (10:03)
[2017-05-05] MEDS: MULTIVITAMINS (DAILY MVI) TABLET (FP) PO SCH (10:04)
[2017-05-05] MEDS: SENNOSIDES/DOCUSATE COMBO (SENNA PLUS) TABLET (UD) PO SCH (10:04)
[2017-05-05] MEDS: POTASSIUM CHLORIDE TABS 10 MEQ TABLET.ER (FP) PO SCH (10:05)
[2017-05-05] MEDS: GABAPENTIN 300 MG CAPSULE (FP) PO SCH (10:05)
[2017-05-05] MEDS: PANTOPRAZOLE 40 MG TABLET (FP) PO SCH (10:06)
[2017-05-05] MEDS: oxyCODONE HCL 10 MG SUSTAINED ACTING TABLET PO SCH (10:06)
[2017-05-05] MEDS: FELODIPINE PO SCH (10:08)
[2017-05-05] MEDS: PATIENT'S OWN MEDICATION (NON-FORMULARY) (Lisinopril/Hydrochlorothiazide [Lisinopril-Hctz PO SCH (10:08)
[2017-05-05 12:51] VITALS: BP 116/73; PULSE 61; TEMP 98
--- NOTE | 2017-05-05 15:46 | PATH ---
Surgical Pathology Report Patient Name: KILEY REYNOSO Med. Rec. #: [id number] /Age/Gender: 1955 (Age: 61) / F Account: [id number] Location: [facility] Taken: 05/03/2017 Received: 05/03/2017 Reported: 05/05/2017 Physicians: Luis Miguel Barrett M.D. Specimen(s) Received RIGHT KNEE BONE AND TISSUE Clinical History Right knee osteoarthritis Final Diagnosis KNEE BONE AND TISSUE, RIGHT, TOTAL REPLACEMENT: DEGENERATIVE JOINT DISEASE. Electronically Signed Gracia Johnson M.D. Gross Description Received in formalin labeled "right knee bone and tissue," is an 11.0 x 10.5 x 2.0 cm aggregate of multiple irregular portions of bone and soft tissue. The tibial plateau measures 7.8 x 5.0 x 1.5 cm. There is a 1.8 cm in greatest dimension area of eburnation identified. The remaining articular surfaces are sue-yellow and focally granular. The underlying trabecular bone is yellow and hard. Roll Forger sections are submitted in one cassette, following decalcification. 05/04/2017 [facility]05/04/2017
== END 2017-05-05 13:25 | disposition home health service (06) | DRG 302 ==
LOC: FM/S 05:54
PROVIDERS: ADMIT Student in an Organized Health Care Education/Training Program; ATTEND Student in an Organized Health Care Education/Training Program
PROC: 0SRC0J9 Replacement of Right Knee Joint with Synthetic Substitute, Cemented, Open Approach (ICD-10-PCS; principal; 2017-05-03 08:19)
DX: M17.11 Unilateral primary osteoarthritis, right knee (principal); I10 Essential (primary) hypertension; J30.89 Other allergic rhinitis; E11.9 Type 2 diabetes mellitus without complications; Z79.84 Long term (current) use of oral hypoglycemic drugs
CPT/HCPCS: 36415; 73560-TC-RT; 80048; 85027; 88304-TC; 88311-TC; 94010; 94760; 97116-GP; 97162-GP

== ENCOUNTER 2018-03-27 20:37 | Emergency (ER) | payer OTHER ==
[2018-03-27 20:41] VITALS: BP 152/95; PULSE 74; TEMP 98; BMI 34.9
[2018-03-27] MEDS ORDERED: KETOROLAC TROMETHAMINE 30 MG/1 ML VIAL IM ONE (20:58)
[2018-03-27] MEDS ORDERED: KETOROLAC TROMETHAMINE 60 MG/2 ML VIAL ONE (21:00)
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
== END 2018-03-27 21:32 | disposition home or self-care (01) ==
LOC: JERFT 20:37
CPT/HCPCS: 72050-TC-FY; 99281-25

== ENCOUNTER 2018-10-15 17:14 | Observation (INO) | payer BC, OTHER ==
--- NOTE | 2018-10-15 19:28 | PDOC ---
History of Present Illness - General Chief Complaint: Shortness of Breath Stated Complaint: ASTHMA ATTACK Time Seen by Provider: 10/15/18 18:51 - History of Present Illness Initial Comments: Lachelle Tobin is a 62yo woman with a PMH of HTN, HLD, COPD, and IDDM who presents with 2 weeks of cough and increased sputum production that worsened acutely yesterday. She reports that the symptoms, originally started about 2 weeks ago. She saw her PMD about 10 days ago and was told that she had bronchitis. She was prescribed an additional daily inhaler and a nasal spray. She did not have any improvement in her symptoms throughout the last 1.5 weeks, but her symptoms remained stable until yesterday. Last night, she had increased difficulty breathing. She was using her albuterol inhaler about every hour without much improvement. She additionally reports new onset of diarrhea yesterday evening. She did not notice any fevers or shivering, but she did have "hot flashes" along with the symptoms. She reports that otherwise she has continued to take her medications (2x daily maintenence inhalers, albuterol) for COPD and her other conditions as prescribed, though she did miss her morning medications today due to feeling sick. She has had no known sick contacts recently and denies any chest pain, diaphoresis, dizziness, nausea/vomiting. With the cough, she has had increased thick sputum production and nasal congestion. Past History - Past Medical History Allergies/Adverse Reactions: Allergies Allergy/AdvReac Type Severity Reaction Status Date / Time No Known Drug Allergies Allergy Verified 10/15/18 17:38 Home Medications: Ambulatory Orders Ramipril [Altace] 20 mg PO DAILY 11/03/11 Cyclobenzaprine HCl [Flexeril -] 10 mg PO HS PRN 03/18/17 Felodipine [Felodipine ER] 10 mg PO DAILY 03/18/17 Fluticasone Prop 0.05% Nasal [Flonase -] 1 - 2 spray NS DAILY PRN 03/18/17 Insulin Glargine,Hum.rec.anlog [Basaglar Kwikpen U-100] 15 unit SQ HS 03/18/17 Lisinopril/Hydrochlorothiazide [Lisinopril-Hctz 20-12.5 mg Tab] 1 each PO DAILY 03/18/17 Potassium Chloride [K-Dur -] 10 meq PO DAILY 03/18/17 Simvastatin 20 mg PO HS 03/18/17 metFORMIN HCL [Metformin HCl] 850 mg PO BID 03/18/17 Salmeterol/Fluticasone [Advair 100Mcg/50Mcg -] 1 inh PO BID PRN 05/03/17 Ascorbic Acid [Vitamin C -] 500 mg PO BID tablet 05/05/17 Multivitamins [Multivit ([facility] Formul[facility])] 1 tab PO DAILY tab 05/05/17 Pantoprazole Sodium [Protonix -] 40 mg PO DAILY #40 tab 05/05/17 Albuterol Sulfate Inhaler - [Ventolin Hfa Inhaler -] 1 - 2 inh PO QID 10/15/18 Mometasone Furoate [Asmanex 220Mcg -] 1 inh IH DAILY 10/15/18 Anemia: No Asthma: Yes (LAST USED INHALER 04/13/17) Cancer: No Cardiac Disorders: No CVA: No COPD: No CHF: No Dementia: No Diabetes: Yes (insulin dependent since 2007) GI Disorders: Yes (gerd) Disorders: No HTN: Yes Hypercholesterolemia: Yes Liver Disease: No Seizures: No Thyroid Disease: No - Surgical History Abdominal Surgery: No Appendectomy: No Cardiac Surgery: No Cholecystectomy: No Lung Surgery: No Neurologic Surgery: No Orthopedic Surgery: Yes (BILATERAL KNEE ARTHROSCOPY 2013) - Immunization History Immunization Up to Date: Yes - Suicide/Smoking/Psychosocial Hx Smoking Status: No Smoking History: Never smoked Have you smoked in the past 12 months: No Number of Cigarettes Smoked Daily: 0 Hx Alcohol Use: No Drug/Substance Use Hx: No Substance Use Type: None Hx Substance Use Treatment: No *Physical Exam - Vital Signs Last Vital Signs Temp Pulse Resp BP Pulse Ox 98.7 F 121 H 17 138/96 97 10/15/18 17:38 10/15/18 17:38 10/15/18 17:38 10/15/18 17:38 10/15/18 17:38 Moderate Sedation - Procedure Monitoring Vital Signs: Procedure Monitoring Vital Signs Temperature 98.7 F 10/15/18 17:38 Pulse Rate 121 H 10/15/18 17:38 Respiratory Rate 17 10/15/18 17:38 Blood Pressure 138/96 10/15/18 17:38 O2 Sat by Pulse Oximetry (%) 97 10/15/18 17:38 ED Treatment Course - LABORATORY CBC & Chemistry Diagram: 10/15/18 19:50 10/15/18 19:50 - RADIOLOGY Radiology Studies Ordered: Category Date Time Status CHEST PA & LAT [RAD] Stat Radiology 10/15/18 19:25 Ordered Medical Decision Making - Medical Decision Making 10/15/18 19:27 Lachelle Tobin is a 62yo woman with a PMH of HTN, HLD, COPD, and IDDM who presents with 2 weeks of cough and increased sputum production, originally diagnosed with bronchitis 1.5wks ago by her PMD. Her symptoms worsened significantly yesterday. She now also additionally has diarrhea. Her SOB and cough have not improved despite using her albuterol inhaler nearly every hour overnight. - h/o COPD and recent dx of bronchitis. Reports increase cough and SOB w/ tightness that feels like her COPD. Most likely COPD exacerbation, though with acute worsening and new GI symptoms may have influenza - Given age and comorbidities, need to r/o ACS. - Duonebs ordered for symptoms - CBC, CMP, trop, EKG, CXR for evaluation 10/15/18 21:56 - Feels significantly improved after duonebs - Labs reviewed, unremarkable. Negative trop - CXR and EKG also unremarkable, no concerning changes - Continues to be tachycardic. Will send 2nd trop - Influenza B positive. Will start tamiflu; likely started within the past day given sudden worsening of symptoms 10/15/18 22:38 - Repeat trop negative - Will d/c home with tamiflu and PMD follow up. Has never been to a choke setter, will refer to see once she has recovered from influenza\\ 10/15/18 22:59 - HR rechecked at bedside. Approx 100/min - Ms Tobin reports that she did not take her home BP meds today. Will give home meds and recheck vitals - Fluids ordered by Dr Rivers. May be a component of mild dehydration as Ms Tobin has been sick for several weeks 10/16/18 00:00 - Continues to be tachycardic to 115's. Discussed hospital admission with ms Tobin. She states that she only recently took her BP meds and would prefer to re -check her HR later. Advised Ms Tobin that she will need to sign AMA paperwork if she decides to leave with abnormal vitals. She understands and would like to think about it. - Pt signed out to Dr Enciso for remainder of ED care. Discussed with Dr Enciso. Mita Dixon PGY1 *DC/Admit/Observation/Transfer Diagnosis at time of Disposition: Influenza B - Referrals Referrals: Ricky Bernard [Primary Care Provider] - Daniel Castro MD, [Staff Physician] - - Patient Instructions Printed Discharge Instructions: DI for Influenza -- Adult Additional Instructions: Discharge Instructions: You were seen in the emergency department for worsening shortness of breath and diarrhea. You had blood tests, an EKG and Xray to check your heart and lungs. These tests were normal. However, you were found to have influenza B. Home Care: - Make sure you are drinking plenty of fluids, even if you are not hungry - Continue to take all of your previously prescribed medications as directed - You may use over the counter medications such as acetaminophen (Tylenol) 650- 1000mg or ibuprofen (Advil, Motrin) 600mg every 6-8 hours for discomfort or fever. - You have been prescribed Tamiflu. You were given the first dose in the ER. Please continue to take this medication until you have completed the entire prescription. Do not stop taking it early. Follow Up: - Make an appointment to see your regular doctor for follow up next week - You have been referred to a choke setter, Dr Castro for follow up of your COPD. You should try to make an appointment within the next few weeks. You should wait to be seen until you have completely recovered from your influenza infection. - Seek immediate medical care if you have worsening symptoms, difficulty breathing, chest pain, fever over 103F or that does not improve with medication , or any other medical emergency. - Post Discharge Activity
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
[2018-10-15] MEDS ORDERED: ALBUTEROL SO4 2.5/IPRATROPIUM 0.5 INH SOL 3 ML VIAL.NEB. NEB ONE ×4 (19:37→20:51)
[2018-10-15] MEDS ORDERED: SODIUM CHLORIDE 0.9% 500 ML INFUS.BAG IV ONE ×2 (19:38→22:42)
[2018-10-15] MEDS: ALBUTEROL SO4 2.5/IPRATROPIUM 0.5 INH SOL 3 ML VIAL.NEB. NEB SCH ×4 (19:53→21:13)
[2018-10-15 20:03] LABS: BASO % 0.6 % (0-2.0); EOS % 3.8 % (0-4.5); LYMPH % 30.9 % (8-40); MCH 26.6 pg (25.7-33.7); MCHC 33.5 g/dl (32.0-36.0); MEAN CELL VOLUME 79.6 fl (80-96); MEAN PLT VOLUME 9.7 fl (7.5-11.1); MONO % 10.2 % (3.8-10.2); NEUT % 54.5 % (42.8-82.8); PLATELET COUNT 265 K/MM3 (134-434); RDW 15.9 % (11.6-15.6); WHITE BLOOD COUNT 6.4 K/mm3 (4.0-10.0)
[2018-10-15 20:30] LABS: ALBUMIN 3.8 g/dl (3.4-5.0); ALK PHOS 142 U/L (45-117); ANION GAP 11 MMOL/L (8-16); BILIRUBIN,TOTAL 0.5 mg/dL (0.2-1); BLOOD UREA NITROGEN 13 mg/dL (7-18); CALCIUM 9.1 mg/dL (8.5-10.1); CHLORIDE 105 mmol/L (98-107); CO2 24 mmol/L (21-32); CREATININE 1.1 mg/dL (0.55-1.3); GLUCOSE,RANDOM 99 mg/dL (74-106); MAGNESIUM 1.5 mg/dL (1.8-2.4); PHOSPHOROUS 3.4 mg/dL (2.5-4.9); POTASSIUM 3.5 mmol/L (3.5-5.1); SGOT/AST 17 U/L (15-37); SGPT/ALT 26 U/L (13-61); SODIUM 140 mmol/L (136-145); TOT PROT 7.7 g/dl (6.4-8.2)
[2018-10-15] MEDS ORDERED: OSELTAMIVIR PHOSPHATE 75 MG CAPSULE PO ONE (22:44)
[2018-10-15] MEDS ORDERED: OSELTAMIVIR PHOSPHATE 75 MG CAPSULE ONE (22:54)
[2018-10-15] MEDS ORDERED: LISINOPRIL 20 MG TABLET (FP) PO ONE (23:02)
[2018-10-15] MEDS ORDERED: amLODIPine BESYLATE 10 MG TABLET (FP) PO ONE (23:02)
[2018-10-15] MEDS ORDERED: amLODIPine BESYLATE 5 MG TABLET (FP) ONE (23:09)
[2018-10-15] MEDS ORDERED: LISINOPRIL 20 MG TABLET (FP) ONE (23:09)
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
[2018-10-16] MEDS ORDERED: MAGNESIUM SULF 50% (8.12 MEQ/2 ML-1 GM VIAL) IVPB ONE (02:53)
[2018-10-16] MEDS ORDERED: CEFTRIAXONE 1 GM in DEXTROSE 5%-WATER - 50 ML IVPB SCH (02:54)
[2018-10-16] MEDS ORDERED: AZITHROMYCIN IVPB 250 MG in DEXTROSE 5%-WATER - 250 ML IVPB SCH (02:55)
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
[2018-10-16] MEDS ORDERED: FLUTICASONE PROP 0.05% 16 GM NASAL SPRAY NS PRN (03:46)
[2018-10-16] MEDS ORDERED: CYCLOBENZAPRINE HCL 10 MG TABLET (FP) PO PRN (03:46)
[2018-10-16] MEDS ORDERED: ALBUTEROL SO4 0.083% IH SOL 2.5 MG/3 ML VIAL.NEB. NEB PRN (03:50)
[2018-10-16] MEDS ORDERED: CEFTRIAXONE 1 GM/50 ML BAG ONE (03:52)
[2018-10-16] MEDS ORDERED: AZITHROMYCIN IVPB 500 MG/250 ML BAG IVPB ONE (03:52)
[2018-10-16] MEDS ORDERED: methylPREDNISolone NA SUCC 40 MG/1 ML VIAL ONE (03:53)
[2018-10-16] MEDS ORDERED: MAGNESIUM 1GM/D5W - 2 GM/200 ML IVPB IVPB ONE ×2 (03:53→04:23)
[2018-10-16] MEDS: methylPREDNISolone NA SUCC 40 MG/1 ML VIAL IVPUSH SCH ×2 (04:19→09:28)
[2018-10-16 04:56] VITALS: BMI 38.7
[2018-10-16] MEDS: INSULIN SLIDING SCALE (NOVOLOG) 1 VIAL SQ SCH ×3 (06:31→16:05)
[2018-10-16] MEDS: ALBUTEROL SO4 2.5/IPRATROPIUM 0.5 INH SOL 3 ML VIAL.NEB. NEB SCH ×3 (07:53→16:15)
[2018-10-16 08:09] LABS: HEMATOCRIT 33.8 % (32.4-45.2); HEMOGLOBIN 11.2 GM/dL (10.7-15.3); MCH 26.3 pg (25.7-33.7); MCHC 33.3 g/dl (32.0-36.0); MEAN PLT VOLUME 9.8 fl (7.5-11.1); PLATELET COUNT 247 K/MM3 (134-434); RBC 4.28 M/mm3 (3.60-5.2); RDW 15.9 % (11.6-15.6); WHITE BLOOD COUNT 6.5 K/mm3 (4.0-10.0)
[2018-10-16 08:33] LABS: ALBUMIN 3.3 g/dl (3.4-5.0); ALK PHOS 124 U/L (45-117); ANION GAP 10 MMOL/L (8-16); BILIRUBIN,TOTAL 0.3 mg/dL (0.2-1); BLOOD UREA NITROGEN 11 mg/dL (7-18); CALCIUM 8.7 mg/dL (8.5-10.1); CHLORIDE 105 mmol/L (98-107); CO2 25 mmol/L (21-32); CREATININE 1.2 mg/dL (0.55-1.3); GLUCOSE,RANDOM 167 mg/dL (74-106); MAGNESIUM 2.1 mg/dL (1.8-2.4); PHOSPHOROUS 3.3 mg/dL (2.5-4.9); POTASSIUM 3.8 mmol/L (3.5-5.1); SGOT/AST 5 U/L (15-37); SGPT/ALT 25 U/L (13-61); SODIUM 140 mmol/L (136-145); TOT PROT 8.1 g/dl (6.4-8.2)
[2018-10-16] MEDS ORDERED: ASCORBIC ACID 500 MG TABLET (FP) PO SCH (10:00)
[2018-10-16] MEDS ORDERED: LISINOPRIL 20 MG TABLET (FP) PO SCH (10:00)
[2018-10-16] MEDS ORDERED: amLODIPine BESYLATE 10 MG TABLET (FP) PO SCH (10:00)
[2018-10-16] MEDS ORDERED: PATIENT'S OWN MEDICATION (NON-FORMULARY) (Lisinopril/Hydrochlorothiazide [Lisinopril-Hctz PO SCH (10:00)
[2018-10-16] MEDS ORDERED: MULTIVITAMINS (DAILY MVI) TABLET (FP) PO SCH (10:00)
[2018-10-16] MEDS ORDERED: FLUTICASONE/SALMETEROL 100 MCG/50 MCG DISKUS IH SCH (10:00)
[2018-10-16] MEDS ORDERED: POTASSIUM CHLORIDE TABS 10 MEQ TABLET.ER (FP) PO SCH (10:00)
[2018-10-16] MEDS ORDERED: ENOXAPARIN NA (PORCINE) 40 MG/0.4 ML DISP.SYRIN SQ SCH (10:00)
[2018-10-16] MEDS ORDERED: HYDROCHLOROTHIAZIDE 12.5 MG CAPSULE (FP) PO SCH (10:00)
[2018-10-16] MEDS ORDERED: PANTOPRAZOLE 40 MG TABLET (FP) PO SCH (10:00)
[2018-10-16] MEDS ORDERED: OSELTAMIVIR PHOSPHATE 75 MG CAPSULE PO SCH (10:00)
[2018-10-16] MEDS ORDERED: MOMETASONE FUROATE 220 MCG/IH INHALER IH SCH (10:00)
--- NOTE | 2018-10-16 14:32 | DS ---
Physical Exam: SUBJECTIVE: Patient seen and examined - feels better, less SOB OBJECTIVE: Vital Signs Period Temp Pulse Resp BP Sys/Malone Pulse Ox Last 24 Hr 98.1 F-99.3 F 67-133 17-20 138-165/79-97 96-98 PHYSICAL EXAM HEENT - Atraumatic, Normocephalic, no pharyngeal erythema/exudate Heart - S1, S2, RRR Lungs - few basal crackles, no wheeze. Abdomen - soft, non-tender. Bowel Sounds normal. Extremities - no edema. No calf tenderness. Neuro -AAO x 3. Tone/Power normal all extremities. LABS Laboratory Results - last 24 hr 10/15/18 10/15/18 10/15/18 19:50 19:50 19:50 WBC 6.4 RBC 4.90 Hgb 13.0 Hct 39.0 MCV 79.6 L MCH 26.6 MCHC 33.5 RDW 15.9 H Plt Count 265 MPV 9.7 Absolute Neuts (auto) 3.5 Neutrophils % 54.5 D Lymphocytes % 30.9 D Monocytes % 10.2 Eosinophils % 3.8 D Basophils % 0.6 Nucleated RBC % 0 Sodium 140 Potassium 3.5 Chloride 105 Carbon Dioxide 24 Anion Gap 11 BUN 13 Creatinine 1.1 Creat Clearance w eGFR 50.33 POC Glucometer Random Glucose 99 Calcium 9.1 Phosphorus 3.4 Magnesium 1.5 L Total Bilirubin 0.5 AST 17 ALT 26 Alkaline Phosphatase 142 H Creatine Kinase 327 H Creatine Kinase Index 0.7 CK-MB (CK-2) 2.3 Troponin I < 0.02 Total Protein 7.7 Albumin 3.8 Influenza A (Rapid) Negative Influenza B (Rapid) Positive A 10/15/18 10/16/18 10/16/18 21:47 04:59 05:40 WBC 6.5 RBC 4.28 Hgb 11.2 Hct 33.8 MCV 79.0 L MCH 26.3 MCHC 33.3 RDW 15.9 H Plt Count 247 MPV 9.8 Absolute Neuts (auto) Neutrophils % Lymphocytes % Monocytes % Eosinophils % Basophils % Nucleated RBC % Sodium Potassium Chloride Carbon Dioxide Anion Gap BUN Creatinine Creat Clearance w eGFR POC Glucometer 172 Random Glucose Calcium Phosphorus Magnesium Total Bilirubin AST ALT Alkaline Phosphatase Creatine Kinase 343 H Creatine Kinase Index 0.6 CK-MB (CK-2) 2.2 Troponin I < 0.02 Total Protein Albumin Influenza A (Rapid) Influenza B (Rapid) 10/16/18 10/16/18 10/16/18 05:40 05:40 11:37 WBC RBC Hgb Hct MCV MCH MCHC RDW Plt Count MPV Absolute Neuts (auto) Neutrophils % Lymphocytes % Monocytes % Eosinophils % Basophils % Nucleated RBC % Sodium 140 Potassium 3.8 Chloride 105 Carbon Dioxide 25 Anion Gap 10 BUN 11 Creatinine 1.2 Creat Clearance w eGFR 45.52 POC Glucometer 307 Random Glucose 167 H Calcium 8.7 Phosphorus 3.3 Magnesium 2.1 Total Bilirubin 0.3 AST 5 L ALT 25 Alkaline Phosphatase 124 H Creatine Kinase 546 H Creatine Kinase Index 0.4 CK-MB (CK-2) 2.6 Troponin I Total Protein 8.1 Albumin 3.3 L Influenza A (Rapid) Influenza B (Rapid) Date of Admission:10/16/18 Date of Discharge: 10/16/18 Minutes to complete discharge: 40 Discharge Summary Reason For Visit: INFLUENZA DUE TO INFLUENZA VIRUS, TYPE B Current Active Problems Influenza B (Acute) Hospital Course: 62 year old female with HTN, HLD, Asthma, OA s/p b/l knee replacement, osteoarthritis, DM 2, presented with 1-2 week history of increasing SOB and Cough. Found to have Influenza B. Currently being treated for Acute Asthma Exacerbation with oral steroid secondary to Influenza, for which she is receiving Tamiflu. She also reported diarrhea yesterday which has resolved. No fever. 1. Acute Asthma Exacerbation secondary to Influenza B Continue Prednisone 40mg for 4 additional days as well as Tamiflu to complete a 5-day course. CT Chest - no consolidation, bilateral lower lobe ground glass changes possible small airway disease. Recommend Pulmonary evaluation on discharge as out-patient once acute symptoms resolve for spirometry. Given prominent main pul artery on CT Chest, also recommend out-patient Echo and Cardio eval. Continue Advair and Albuterol prn. 2. HTN - Continue Felodipine and Lisinopril/HCTZ 3. HLD - Continue Statin. 4. DM 2 - Resume home anti-hyperglycemic regimen. Medically and Hemodynamically Stable for discharge with PCP follow up and Pulm/ Cardiology referrals as out-patient. Discharge Medications Medication Instructions Recorded Cyclobenzaprine HCl [Flexeril -] 10 mg PO HS PRN 03/18/17 Felodipine [Felodipine ER] 10 mg PO DAILY 03/18/17 Fluticasone Prop 0.05% Nasal 1 - 2 spray NS DAILY PRN 03/18/17 [Flonase -] Insulin Glargine,Hum.rec.anlog 15 unit SQ HS 03/18/17 [Basaglar Kwikpen U-100] Lisinopril/Hydrochlorothiazide 1 each PO DAILY 03/18/17 [Lisinopril-Hctz 20-12.5 mg Tab] Potassium Chloride [K-Dur -] 10 meq PO DAILY 03/18/17 Simvastatin 20 mg PO HS 03/18/17 metFORMIN HCL [Metformin HCl] 850 mg PO BID 03/18/17 Salmeterol/Fluticasone [Advair 1 inh PO BID PRN 05/03/17 100Mcg/50Mcg -] Ascorbic Acid [Vitamin C -] 500 mg PO BID tablet 05/05/17 Multivitamins [Multivit ([facility] 1 tab PO DAILY tab 05/05/17 Formulary)] Pantoprazole Sodium [Protonix -] 40 mg PO DAILY #40 tab 05/05/17 Albuterol Sulfate Inhaler - 1 - 2 inh PO QID 10/15/18 [Ventolin HFA Inhaler -] Mometasone Furoate [Asmanex 220Mcg 1 inh IH DAILY 10/15/18 -] Oseltamivir Phosphate [Tamiflu -] 75 mg PO BID 4 Days #8 capsule 10/16/18 Prednisone [Deltasone] 20 mg PO DAILY 4 Days #8 tablet 10/16/18 Condition: Good - Instructions Diet, Activity, Other Instructions: Discharge Instructions: You were seen in the emergency department for worsening shortness of breath and diarrhea. You had blood tests, an EKG and Xray to check your heart and lungs. These tests were normal. However, you were found to have influenza B. Home Care: - Make sure you are drinking plenty of fluids, even if you are not hungry - Continue to take all of your previously prescribed medications as directed - You may use over the counter medications such as acetaminophen (Tylenol) 650- 1000mg or ibuprofen (Advil, Motrin) 600mg every 6-8 hours for discomfort or fever. - You have been prescribed Tamiflu. You were given the first dose in the ER. Please continue to take this medication until you have completed the entire prescription. Do not stop taking it early. Follow Up: - Make an appointment to see your regular doctor for follow up next week - You have been referred to a production coordinator, Dr Castro for follow up of your COPD. You should try to make an appointment within the next few weeks. You should wait to be seen until you have completely recovered from your influenza infection. - Seek immediate medical care if you have worsening symptoms, difficulty breathing, chest pain, fever over 103F or that does not improve with medication , or any other medical emergency. Referrals: Daniel Castro MD, MD [Staff Physician] - 1 Week Ricky Bernard [Primary Care Provider] - 1 Week Stephon Yi MD [Staff Physician] - 2 Weeks Disposition: HOME - Home Medications Comprehensive Discharge Medication List: Ambulatory Orders Cyclobenzaprine HCl [Flexeril -] 10 mg PO HS PRN 03/18/17 Felodipine [Felodipine ER] 10 mg PO DAILY 03/18/17 Fluticasone Prop 0.05% Nasal [Flonase -] 1 - 2 spray NS DAILY PRN 03/18/17 Insulin Glargine,Hum.rec.anlog [Basaglar Kwikpen U-100] 15 unit SQ HS 03/18/17 Lisinopril/Hydrochlorothiazide [Lisinopril-Hctz 20-12.5 mg Tab] 1 each PO DAILY 03/18/17 Potassium Chloride [K-Dur -] 10 meq PO DAILY 03/18/17 Simvastatin 20 mg PO HS 03/18/17 metFORMIN HCL [Metformin HCl] 850 mg PO BID 03/18/17 Salmeterol/Fluticasone [Advair 100Mcg/50Mcg -] 1 inh PO BID PRN 05/03/17 Ascorbic Acid [Vitamin C -] 500 mg PO BID tablet 05/05/17 Multivitamins [Multivit ([facility] Formulary)] 1 tab PO DAILY tab 05/05/17 Pantoprazole Sodium [Protonix -] 40 mg PO DAILY #40 tab 05/05/17 Albuterol Sulfate Inhaler - [Ventolin HFA Inhaler -] 1 - 2 inh PO QID 10/15/18 Mometasone Furoate [Asmanex 220Mcg -] 1 inh IH DAILY 10/15/18 Oseltamivir Phosphate [Tamiflu -] 75 mg PO BID 4 Days #8 capsule 10/16/18 Prednisone [Deltasone] 20 mg PO DAILY 4 Days #8 tablet 10/16/18 This patient is new to me today: Yes Date on this admission: 10/16/18 Emergency Visit: Yes ED Registration Date: 10/16/18 Care time: The patient presented to the Emergency Department on the above date and was hospitalized for further evaluation of their emergent condition. Critical Care patient: No - Discharge Referral Referred to [facility] No
[2018-10-16] MEDS ORDERED: PT OWN MED DRAWER 7, Y5N ONE (15:58)
[2018-10-16 17:54] VITALS: BP 129/78; PULSE 92; TEMP 98
[2018-10-16] MEDS ORDERED: ATORVASTATIN CA 10 MG TABLET (FP) PO SCH (22:00)
--- NOTE | 2018-10-18 13:52 | EKG ---
Test Reason : Blood Pressure : / mmHG Vent. Rate : 109 BPM Atrial Rate : 109 BPM P-R Int : 134 ms QRS Dur : 080 ms QT Int : 350 ms P-R-T Axes : 051 -53 082 degrees QTc Int : 471 ms SINUS TACHYCARDIA LEFT ANTERIOR FASCICULAR BLOCK NONSPECIFIC ST AND T WAVE ABNORMALITY ABNORMAL ECG WHEN COMPARED WITH ECG OF 18-MAR-2017 00:23, NONSPECIFIC T WAVE ABNORMALITY, IMPROVED IN ANTERIOR LEADS Confirmed by MD Vishal, Sreedhar ([id number]) on 10/18/2018 1:52:18 PM Referred By: Confirmed By:Sreedhar Rodgers MD
== END 2018-10-16 18:50 | disposition home or self-care (01) ==
LOC: JER 17:14 → JERBED 10-16 01:50 → J8W 10-16 04:41
PROVIDERS: ADMIT Internal Medicine
PROC: 3E033GC Introduction of Other Therapeutic Substance into Peripheral Vein, Percutaneous Approach (ICD-10-PCS; principal; 2018-10-16)
PROC: 3E013VG Introduction of Insulin into Subcutaneous Tissue, Percutaneous Approach (ICD-10-PCS; 2018-10-16)
PROC: 3E013GC Introduction of Other Therapeutic Substance into Subcutaneous Tissue, Percutaneous Approach (ICD-10-PCS; 2018-10-16)
PROC: 3E0337Z Introduction of Electrolytic and Water Balance Substance into Peripheral Vein, Percutaneous Approach (ICD-10-PCS; 2018-10-16)
PROC: 3E0F7GC Introduction of Other Therapeutic Substance into Respiratory Tract, Via Natural or Artificial Opening (ICD-10-PCS; 2018-10-16)
DX: J10.1 Influenza due to other identified influenza virus with other respiratory manifestations (principal); J44.1 Chronic obstructive pulmonary disease with (acute) exacerbation; J45.901 Unspecified asthma with (acute) exacerbation; M62.82 Rhabdomyolysis; I10 Essential (primary) hypertension; E78.5 Hyperlipidemia, unspecified; E11.9 Type 2 diabetes mellitus without complications; K21.9 Gastro-esophageal reflux disease without esophagitis; M19.90 Unspecified osteoarthritis, unspecified site; E66.9 Obesity, unspecified; Z68.38 Body mass index [BMI] 38.0-38.9, adult; Z96.653 Presence of artificial knee joint, bilateral; Z79.4 Long term (current) use of insulin; Z79.84 Long term (current) use of oral hypoglycemic drugs
CPT/HCPCS: 36415; 71046-TC-FY; 71250-TC; 80053; 82550; 82553; 82962; 83735; 84100; 84484; 85025; 85027; 87804; 93005; 93010; 94640; 96372; 96374; 96375; 99283-25; G0378

== ENCOUNTER 2020-06-24 19:04 | Inpatient (IN) | payer OTHER ==
[2020-06-24 19:56] VITALS: BMI 33.3
[2020-06-24] MEDS ORDERED: LACTATED RINGERS SOLUTION 1,000 ML/1,000 ML INFUS.BAG IV STA (20:47)
[2020-06-24 20:48] LABS: BASO % 0.5 % (0-2.0); EOS % 0.2 % (0-4.5); HEMATOCRIT 39.5 % (32.4-45.2); HEMOGLOBIN 12.6 GM/dL (10.7-15.3); MCH 25.3 pg (25.7-33.7); MCHC 31.9 g/dl (32.0-36.0); MEAN CELL VOLUME 79.3 fl (80-96); MEAN PLT VOLUME 10.2 fl (7.5-11.1); MONO % 1.3 % (3.8-10.2); PLATELET COUNT 275 K/MM3 (134-434); RBC 4.98 M/mm3 (3.60-5.2); RDW 16.5 % (11.6-15.6)
[2020-06-24] MEDS ORDERED: FAMOTIDINE 20 MG/50 ML IVPB 20 MG/50 ML MG IVPB STA (20:49)
[2020-06-24] MEDS ORDERED: morphine CARPU-JECT 4 MG/1 ML DISP.SYRIN IVPUSH STA (20:49)
[2020-06-24] MEDS ORDERED: ONDANSETRON 4 MG/2 ML VIAL IVPB STA (20:49)
[2020-06-24] MEDS ORDERED: FAMOTIDINE 20 MG/50 ML IVPB 20 MG/50 ML MG IVPB ONE (20:53)
[2020-06-24] MEDS ORDERED: morphine SULFATE 4 MG/ML VIAL ONE (20:53)
[2020-06-24 20:55] LABS: INR 1.23 (0.83-1.09)
[2020-06-24] MEDS ORDERED: ONDANSETRON 4 MG/2 ML VIAL IVPUSH STA (20:55)
[2020-06-24 21:09] LABS: CHLORIDE 104 mmol/L (98-107); POTASSIUM 3.3 mmol/L (3.5-5.1); SODIUM 139 mmol/L (136-145)
[2020-06-24 21:12] LABS: ALBUMIN 4.1 g/dl (3.4-5.0); ANION GAP 10 MMOL/L (8-16); BLOOD UREA NITROGEN 11.8 mg/dL (7-18); CALCIUM 9.8 mg/dL (8.5-10.1); CO2 26 mmol/L (21-32); GLUCOSE,RANDOM 168 mg/dL (74-106); LIPASE 91 U/L (73-393)
[2020-06-24 21:15] LABS: CREATININE 0.8 mg/dL (0.55-1.3); SGOT/AST 19 U/L (15-37); SGPT/ALT 18 U/L (13-61)
[2020-06-24 21:17] LABS: BILIRUBIN,TOTAL 0.4 mg/dL (0.2-1); TOT PROT 8.6 g/dl (6.4-8.2)
[2020-06-24 21:18] LABS: ALK PHOS 127 U/L (45-117)
[2020-06-24] MEDS ORDERED: METOCLOPRAMIDE HCL INJECTION 10 MG/2 ML VIAL IVPUSH ONE (21:49)
[2020-06-24] MEDS ORDERED: METOCLOPRAMIDE HCL INJECTION 10 MG/2 ML VIAL ONE (21:52)
[2020-06-25 01:41] LABS: EPI CELLS 5 /uL (0-25.1); HYALINE CASTS 0 /uL (0-3.1); URINE APPEARANCE CLEAR; URINE BACTERIA 2 /uL (0-1359); URINE BILIRUBIN NEGATIVE (NEGATIVE); URINE COLOR YELLOW; URINE GLUCOSE (UA) NEGATIVE (NEGATIVE); URINE KETONE NEGATIVE (NEGATIVE); URINE LEUK ESTERASE NEGATIVE (NEGATIVE); URINE NITRITE NEGATIVE (NEGATIVE); URINE PROTEIN 2+ (NEGATIVE); URINE RBC 1 /uL (0-23.9); URINE UROBILINOGEN 0.2 mg/dL (0.2-1.0); URINE WBC 1 /uL (0-25.8)
[2020-06-25] MEDS ORDERED: POTASSIUM CHLORIDE TABS 20 MEQ TABLET.ER (FP) PO ONE ×2 (02:14→03:30)
[2020-06-25] MEDS ORDERED: ACETAMINOPHEN 1000 MG/100 ML VIAL (NON FORMULARY) IVPB ONE (02:14)
[2020-06-25] MEDS ORDERED: LACTATED RINGERS SOLUTION 1,000 ML IV SCH (02:15)
[2020-06-25 02:19] LABS: MAGNESIUM 1.8 mg/dL (1.8-2.4)
[2020-06-25 02:51] LABS: BASO % 0.2 % (0-2.0); EOS % 0.2 % (0-4.5); HEMATOCRIT 36.8 % (32.4-45.2); HEMOGLOBIN 11.9 GM/dL (10.7-15.3); LYMPH % 11.6 % (8-40); MCH 25.5 pg (25.7-33.7); MCHC 32.3 g/dl (32.0-36.0); MEAN PLT VOLUME 10.3 fl (7.5-11.1); PLATELET COUNT 257 K/MM3 (134-434); RBC 4.66 M/mm3 (3.60-5.2); RDW 15.7 % (11.6-15.6); WHITE BLOOD COUNT 11.8 K/mm3 (4.0-10.0)
[2020-06-25] MEDS ORDERED: TRIMETHOBENZAMIDE HCL 200MG/2ML INJ IM PRN (03:17)
[2020-06-25] MEDS ORDERED: KCL 10 MEQ IVPB 10 MEQ/100 ML INFUS.BAG IVPB ONE ×3 (03:31→07:17)
[2020-06-25] MEDS ORDERED: ACETAMINOPHEN INJECTION 100 ML IVPB ONE (03:32)
[2020-06-25] MEDS: KCL 10 MEQ IVPB 10 MEQ/100 ML INFUS.BAG IVPB SCH ×3 (03:52→07:19)
[2020-06-25] MEDS ORDERED: ACETAMINOPHEN 1000 MG/100 ML VIAL (NON FORMULARY) IVPB PRN (04:02)
[2020-06-25] MEDS: INSULIN SLIDING SCALE (NOVOLOG) 1 VIAL SQ SCH ×2 (07:03→12:27)
[2020-06-25 07:26] LABS: BASO % 0.3 % (0-2.0); HEMATOCRIT 36.1 % (32.4-45.2); HEMOGLOBIN 11.5 GM/dL (10.7-15.3); MCH 25.1 pg (25.7-33.7); MCHC 31.8 g/dl (32.0-36.0); MEAN CELL VOLUME 78.9 fl (80-96); MEAN PLT VOLUME 10.5 fl (7.5-11.1); MONO % 5.3 % (3.8-10.2); NEUT % 77.4 % (42.8-82.8); PLATELET COUNT 251 K/MM3 (134-434); RBC 4.57 M/mm3 (3.60-5.2); RDW 16.1 % (11.6-15.6); WHITE BLOOD COUNT 10.7 K/mm3 (4.0-10.0)
[2020-06-25 07:36] LABS: POTASSIUM 3.5 mmol/L (3.5-5.1)
[2020-06-25 07:38] LABS: ALBUMIN 3.8 g/dl (3.4-5.0); BLOOD UREA NITROGEN 10.7 mg/dL (7-18); CALCIUM 9.4 mg/dL (8.5-10.1)
[2020-06-25 07:42] LABS: MAGNESIUM 1.9 mg/dL (1.8-2.4); PHOSPHOROUS 3.4 mg/dL (2.5-4.9)
[2020-06-25 07:43] LABS: BILIRUBIN,TOTAL 0.5 mg/dL (0.2-1); TOT PROT 7.5 g/dl (6.4-8.2)
[2020-06-25 07:48] LABS: CREATININE 0.8 mg/dL (0.55-1.3)
[2020-06-25] MEDS ORDERED: amLODIPine BESYLATE 10 MG TABLET (FP) PO SCH (10:00)
[2020-06-25] MEDS ORDERED: ENOXAPARIN NA (PORCINE) 40 MG/0.4 ML DISP.SYRIN SQ SCH (10:00)
[2020-06-25] MEDS ORDERED: PANTOPRAZOLE 40 MG TABLET PO SCH (10:00)
[2020-06-25 15:19] VITALS: BP 145/90; PULSE 62; TEMP 99
[2020-06-25] MEDS ORDERED: ATORVASTATIN CA 10 MG TABLET (FP) PO SCH (22:00)
== END 2020-06-25 16:31 | disposition home or self-care (01) | DRG 392 ==
LOC: JER 19:04 → JERBED 06-25 00:47 → J6WEST-2 06-25 09:44
PROVIDERS: ADMIT Internal Medicine; ATTEND Internal Medicine
DX: A05.9 Bacterial foodborne intoxication, unspecified (principal); E87.2 Acidosis; K52.9 Noninfective gastroenteritis and colitis, unspecified; D72.829 Elevated white blood cell count, unspecified; I10 Essential (primary) hypertension; E78.5 Hyperlipidemia, unspecified; K21.9 Gastro-esophageal reflux disease without esophagitis; K57.90 Diverticulosis of intestine, part unspecified, without perforation or abscess without bleeding; E87.6 Hypokalemia; E66.9 Obesity, unspecified; Z68.33 Body mass index [BMI] 33.0-33.9, adult; K44.9 Diaphragmatic hernia without obstruction or gangrene
CPT/HCPCS: 36415; 74177-TC; 80053; 81003; 82550; 82553; 82962; 83605; 83690; 83735; 84100; 84484; 85025; 85610; 87040; 93005; 93010; 99285-25; C9803; J0131; U0003

== ENCOUNTER 2020-11-09 17:27 | Emergency (ER) | payer OTHER ==
[2020-11-09 17:45] VITALS: BP 133/86; PULSE 74; TEMP 98.2; BMI 35.4
== END 2020-11-09 18:34 | disposition home or self-care (01) ==
LOC: JER 17:27 → JERFT 17:27
DX: M79.604 Pain in right leg (principal); W19.XXXA Unspecified fall, initial encounter
CPT/HCPCS: 73523-TC-FY; 73562-TC-LT-FY; 99284-25

== ENCOUNTER 2022-12-14 16:20 | Emergency (ER) | payer OTHER ==
[2022-12-14 16:40] VITALS: BMI 34.9
[2022-12-14] MEDS ORDERED: AMOXICILLIN 500 MG CAPSULE (FP) PO ONE (17:40)
[2022-12-14] MEDS ORDERED: AMOX TR/POT CLAV 875MG/125MG TABLETS (FP) PO ONE (17:42)
[2022-12-14] MEDS ORDERED: AMOX TR/POT CLAV 875MG/125MG TABLETS (FP) ONE (18:38)
[2022-12-14 18:44] VITALS: BP 157/78; PULSE 89; RESP 18; TEMP 97.7
== END 2022-12-14 18:44 | disposition home or self-care (01) ==
LOC: JER 16:20
DX: J30.2 Other seasonal allergic rhinitis (principal); J01.80 Other acute sinusitis; R09.81 Nasal congestion; R07.0 Pain in throat; H93.90 Unspecified disorder of ear, unspecified ear; R68.83 Chills (without fever); R09.82 Postnasal drip; R05.9 Cough, unspecified; Z20.822 Contact with and (suspected) exposure to COVID-19
CPT/HCPCS: 0241U-QW; 71046-TC-FY; 93005; 93010; 99285-25

== ENCOUNTER 2023-01-29 22:27 | Inpatient (IN) | payer OTHER ==
[2023-01-29] MEDS ORDERED: ACETAMINOPHEN 1000 MG/100 ML BAG IVPB ONE (22:53)
[2023-01-29] MEDS ORDERED: SODIUM CHLORIDE 0.9% 500 ML INFUS.BAG IV ONE (22:53)
[2023-01-29] MEDS ORDERED: ONDANSETRON 4 MG/2 ML VIAL IVPUSH ONE (22:53)
[2023-01-29] MEDS ORDERED: FAMOTIDINE 20 MG/50 ML IVPB 20 MG/50 ML MG IVPB ONE ×2 (22:54→23:02)
[2023-01-29] MEDS ORDERED: ONDANSETRON 4 MG/2 ML VIAL ONE (23:02)
[2023-01-29] MEDS ORDERED: ACETAMINOPHEN INJECTION 100 ML IVPB ONE (23:02)
[2023-01-29 23:30] LABS: BASO % 0.6 % (0-2.0); HEMATOCRIT 37.6 % (32.4-45.2); HEMOGLOBIN 11.9 GM/dL (10.7-15.3); LYMPH % 9.1 % (8-40); MCH 24.4 pg (25.7-33.7); MCHC 31.8 g/dl (32.0-36.0); MEAN CELL VOLUME 76.7 fl (80-96); MEAN PLT VOLUME 9.2 fl (7.5-11.1); MONO % 1.6 % (3.8-10.2); NEUT % 88.7 % (42.8-82.8); PLATELET COUNT 295 10^3/uL (134-434); RBC 4.91 M/mm3 (3.60-5.2); RDW 15.9 % (11.6-15.6); WHITE BLOOD COUNT 12.3 K/mm3 (4.0-10.0)
[2023-01-29 23:49] LABS: POTASSIUM 3.4 mmol/L (3.5-5.1)
[2023-01-29 23:55] LABS: ALBUMIN 4.1 g/dl (3.4-5.0); BLOOD UREA NITROGEN 16.2 mg/dL (7-18); MAGNESIUM 1.6 mg/dL (1.8-2.4)
[2023-01-29] MEDS ORDERED: MAGNESIUM SULF 50% (8.12 MEQ/2 ML-1 GM VIAL) IVPB ONE (23:56)
[2023-01-29] MEDS ORDERED: POTASSIUM CHLORIDE TABS 20 MEQ TABLET.ER (FP) PO ONE (23:56)
[2023-01-29 23:59] LABS: BILIRUBIN,TOTAL 0.4 mg/dL (0.2-1); TOT PROT 8.4 g/dl (6.4-8.2)
[2023-01-30 00:15] LABS: THROAT:GRP A STREP NOT DETECTED (NOTDETECTED)
[2023-01-30] MEDS ORDERED: POTASSIUM CHLORIDE TABS 20 MEQ TABLET.ER (FP) PO ONE ×2 (00:17→09:00)
[2023-01-30] MEDS ORDERED: MAGNESIUM SULFATE IN WATER 2 GM/50 ML IVPB IVPB ONE (00:17)
[2023-01-30] MEDS ORDERED: morphine CARPU-JECT 2 MG/1 ML DISP.SYRIN IVPUSH ONE (00:28)
[2023-01-30] MEDS ORDERED: ACETAMINOPHEN 1000 MG/100 ML BAG IVPB PRN (05:54)
[2023-01-30 06:32] LABS: HEMATOCRIT 37.5 % (32.4-45.2); HEMOGLOBIN 11.8 GM/dL (10.7-15.3); MCH 24.6 pg (25.7-33.7); MCHC 31.5 g/dl (32.0-36.0); MEAN CELL VOLUME 78.1 fl (80-96); MEAN PLT VOLUME 10.2 fl (7.5-11.1); PLATELET COUNT 282 10^3/uL (134-434); RDW 15.9 % (11.6-15.6); WHITE BLOOD COUNT 11.5 K/mm3 (4.0-10.0)
[2023-01-30 06:35] LABS: EPI CELLS 11 /uL (0-25.1); HYALINE CASTS 0 /uL (0-3.1); URINE APPEARANCE CLEAR; URINE BACTERIA 8 /uL (0-1359); URINE BILIRUBIN NEGATIVE (NEGATIVE); URINE COLOR YELLOW; URINE GLUCOSE (UA) NEGATIVE (NEGATIVE); URINE KETONE TRACE (NEGATIVE); URINE LEUK ESTERASE NEGATIVE (NEGATIVE); URINE NITRITE NEGATIVE (NEGATIVE); URINE PROTEIN 3+ (NEGATIVE); URINE RBC 14 /uL (0-23.9); URINE UROBILINOGEN 0.2 mg/dL (0.2-1.0); URINE WBC 9 /uL (0-25.8)
[2023-01-30 06:49] LABS: POTASSIUM 3.2 mmol/L (3.5-5.1)
[2023-01-30 06:51] LABS: ALBUMIN 3.8 g/dl (3.4-5.0); CALCIUM 9.2 mg/dL (8.5-10.1); MAGNESIUM 1.9 mg/dL (1.8-2.4)
[2023-01-30 06:52] LABS: BLOOD UREA NITROGEN 12.5 mg/dL (7-18)
[2023-01-30 06:54] LABS: CREATININE 0.9 mg/dL (0.55-1.3)
[2023-01-30 06:55] LABS: PHOSPHOROUS 1.9 mg/dL (2.5-4.9)
[2023-01-30 06:56] LABS: BILIRUBIN,TOTAL 0.4 mg/dL (0.2-1); TOT PROT 7.8 g/dl (6.4-8.2)
[2023-01-30 07:00] LABS: LACTIC ACID 2.3 mmol/L (0.4-2.0)
[2023-01-30] MEDS: INSULIN SLIDING SCALE (NOVOLOG) 1 VIAL SQ SCH ×4 (07:57→21:36)
[2023-01-30] MEDS ORDERED: ALBUTEROL SO4 HFA INHALER IH PRN (07:57)
[2023-01-30] MEDS: SODIUM CHLORIDE 1,000 ML IV SCH ×2 (09:49→23:49)
[2023-01-30] MEDS ORDERED: PANTOPRAZOLE 40 MG TABLET PO SCH (10:00)
[2023-01-30] MEDS: CEFTRIAXONE 1 GM in DEXTROSE 5%-WATER - 50 ML IVPB SCH (10:42)
[2023-01-30] MEDS: ENOXAPARIN NA (PORCINE) 40 MG/0.4 ML DISP.SYRIN SQ SCH (10:42)
[2023-01-30] MEDS ORDERED: ONDANSETRON 4 MG/2 ML VIAL IVPUSH PRN (12:57)
[2023-01-30] MEDS: BUDESONIDE/FORMETEROL FUMARATE 160/4.5 mcg INHALER IH SCH ×2 (13:23→21:28)
[2023-01-30] MEDS ORDERED: METOCLOPRAMIDE HCL INJECTION 10 MG/2 ML VIAL IVPUSH PRN (16:17)
[2023-01-30] MEDS: METOCLOPRAMIDE HCL INJECTION 10 MG/2 ML VIAL IVPUSH SCH ×2 (16:59→21:33)
[2023-01-30] MEDS: ATORVASTATIN CA 10 MG TABLET (FP) PO SCH (21:27)
[2023-01-31] MEDS: METOCLOPRAMIDE HCL INJECTION 10 MG/2 ML VIAL IVPUSH SCH ×5 (05:16→22:40)
[2023-01-31] MEDS: INSULIN SLIDING SCALE (NOVOLOG) 1 VIAL SQ SCH ×4 (06:58→22:37)
[2023-01-31 07:35] LABS: BASO % 0.6 % (0-2.0); EOS % 0.4 % (0-4.5); HEMATOCRIT 37.5 % (32.4-45.2); LYMPH % 26.2 % (8-40); MCH 24.7 pg (25.7-33.7); MCHC 32.1 g/dl (32.0-36.0); MEAN CELL VOLUME 77.1 fl (80-96); MEAN PLT VOLUME 9.9 fl (7.5-11.1); MONO % 7.1 % (3.8-10.2); NEUT % 65.7 % (42.8-82.8); PLATELET COUNT 291 10^3/uL (134-434); RBC 4.86 M/mm3 (3.60-5.2); RDW 15.8 % (11.6-15.6); WHITE BLOOD COUNT 8.6 K/mm3 (4.0-10.0)
[2023-01-31 07:49] LABS: ALBUMIN 3.8 g/dl (3.4-5.0); CALCIUM 9.3 mg/dL (8.5-10.1); MAGNESIUM 1.9 mg/dL (1.8-2.4); POTASSIUM 3.1 mmol/L (3.5-5.1)
[2023-01-31 07:50] LABS: BLOOD UREA NITROGEN 14.3 mg/dL (7-18)
[2023-01-31 07:54] LABS: BILIRUBIN,TOTAL 0.5 mg/dL (0.2-1); TOT PROT 7.5 g/dl (6.4-8.2)
[2023-01-31] MEDS ORDERED: MAGNESIUM OXIDE 400 MG TABLET (FP) PO ONE (08:57)
[2023-01-31] MEDS ORDERED: GABAPENTIN 100 MG CAPSULE PO SCH (09:18)
[2023-01-31] MEDS ORDERED: SCOPOLAMINE HYDROBROMIDE 1 PATCH PATCH.TD72 TD SCH (09:45)
[2023-01-31] MEDS: CEFTRIAXONE 1 GM in DEXTROSE 5%-WATER - 50 ML IVPB SCH (09:56)
[2023-01-31] MEDS: ENOXAPARIN NA (PORCINE) 40 MG/0.4 ML DISP.SYRIN SQ SCH (09:57)
[2023-01-31] MEDS: PANTOPRAZOLE 40 MG TABLET PO SCH ×2 (10:18→22:37)
[2023-01-31] MEDS: SODIUM CHLORIDE 1,000 ML IV SCH (10:20)
[2023-01-31] MEDS: POTASSIUM CHLORIDE TABS 20 MEQ TABLET.ER (FP) PO SCH ×2 (10:20→22:36)
[2023-01-31] MEDS: BUDESONIDE/FORMETEROL FUMARATE 160/4.5 mcg INHALER IH SCH ×2 (10:20→22:38)
[2023-01-31] MEDS ORDERED: INSULIN (NOVOLOG) ASPART 100 UNITS/ML 10ML VIAL ONE (12:20)
[2023-01-31] MEDS ORDERED: TRIMETHOBENZAMIDE HCL 200MG/2ML INJ IM PRN (12:57)
[2023-01-31] MEDS ORDERED: LISINOPRIL 20 MG TABLET PO ONE (14:10)
[2023-01-31] MEDS ORDERED: amLODIPine BESYLATE 5 MG TABLET (FP) PO ONE ×2 (14:17→18:30)
[2023-01-31] MEDS ORDERED: oxyCODONE HCL 5 MG TABLET PO PRN (18:21)
[2023-01-31] MEDS: oxyCODONE HCL 5 MG TABLET PO PRN (21:54)
[2023-01-31] MEDS: ATORVASTATIN CA 10 MG TABLET (FP) PO SCH (22:36)
[2023-02-01 06:24] VITALS: BP 147/95; PULSE 71; RESP 18; TEMP 98.8
[2023-02-01] MEDS: METOCLOPRAMIDE HCL INJECTION 10 MG/2 ML VIAL IVPUSH SCH ×2 (06:46→11:05)
[2023-02-01] MEDS: oxyCODONE HCL 5 MG TABLET PO PRN (06:47)
[2023-02-01] MEDS: INSULIN SLIDING SCALE (NOVOLOG) 1 VIAL SQ SCH ×2 (06:55→11:20)
[2023-02-01] MEDS: SODIUM CHLORIDE 1,000 ML IV SCH (08:00)
[2023-02-01 08:46] LABS: BASO % 0.5 % (0-2.0); EOS % 0.3 % (0-4.5); HEMATOCRIT 37.2 % (32.4-45.2); HEMOGLOBIN 12.1 GM/dL (10.7-15.3); LYMPH % 26.5 % (8-40); MCH 25.2 pg (25.7-33.7); MCHC 32.6 g/dl (32.0-36.0); MEAN CELL VOLUME 77.3 fl (80-96); MEAN PLT VOLUME 10.1 fl (7.5-11.1); MONO % 7.8 % (3.8-10.2); NEUT % 64.9 % (42.8-82.8); PLATELET COUNT 298 10^3/uL (134-434); RBC 4.81 M/mm3 (3.60-5.2); RDW 15.7 % (11.6-15.6); WHITE BLOOD COUNT 7.8 K/mm3 (4.0-10.0)
[2023-02-01 09:08] LABS: POTASSIUM 3.5 mmol/L (3.5-5.1)
[2023-02-01 09:13] LABS: ALBUMIN 3.6 g/dl (3.4-5.0); BLOOD UREA NITROGEN 11.4 mg/dL (7-18); MAGNESIUM 1.7 mg/dL (1.8-2.4)
[2023-02-01 09:16] LABS: CREATININE 0.9 mg/dL (0.55-1.3)
[2023-02-01 09:18] LABS: BILIRUBIN,TOTAL 0.7 mg/dL (0.2-1); TOT PROT 7.3 g/dl (6.4-8.2)
[2023-02-01] MEDS: CEFTRIAXONE 1 GM in DEXTROSE 5%-WATER - 50 ML IVPB SCH (09:36)
[2023-02-01] MEDS: PANTOPRAZOLE 40 MG TABLET PO SCH (09:37)
[2023-02-01] MEDS: ENOXAPARIN NA (PORCINE) 40 MG/0.4 ML DISP.SYRIN SQ SCH (09:44)
[2023-02-01] MEDS: BUDESONIDE/FORMETEROL FUMARATE 160/4.5 mcg INHALER IH SCH (09:45)
[2023-02-01] MEDS ORDERED: LISINOPRIL 20 MG TABLET PO SCH (10:00)
[2023-02-01] MEDS ORDERED: amLODIPine BESYLATE 10 MG TABLET (FP) PO SCH (10:00)
[2023-02-01] MEDS ORDERED: amLODIPine BESYLATE 5 MG TABLET (FP) PO SCH (10:00)
[2023-02-01 10:52] VITALS: BMI 36.2
== END 2023-02-01 11:41 | disposition home or self-care (01) | DRG 392 ==
LOC: JER 22:27 → OBSVTOIN 01-30 03:05 → INTOOBSV 01-30 03:05 → UNDOADMOB 01-30 03:05 → JERBED 01-30 03:05 → OBSVTOIN 01-30 04:06 → J8W 01-30 06:22 → JERBED 01-30 06:22
PROVIDERS: ADMIT Internal Medicine; ATTEND Nurse Practitioner Acute Care
DX: A05.9 Bacterial foodborne intoxication, unspecified (principal); A08.4 Viral intestinal infection, unspecified; R19.7 Diarrhea, unspecified; E11.9 Type 2 diabetes mellitus without complications; E11.65 Type 2 diabetes mellitus with hyperglycemia; J45.909 Unspecified asthma, uncomplicated; I10 Essential (primary) hypertension; E66.9 Obesity, unspecified; K21.9 Gastro-esophageal reflux disease without esophagitis; E78.5 Hyperlipidemia, unspecified; E87.6 Hypokalemia; D72.829 Elevated white blood cell count, unspecified; R10.13 Epigastric pain; R11.2 Nausea with vomiting, unspecified; Z68.36 Body mass index [BMI] 36.0-36.9, adult
CPT/HCPCS: 0241U-QW; 36415; 71045-TC-FY; 71250-TC; 74177-TC; 76830-TC; 76856-TC; 80053; 81003; 82962; 83605; 83690; 83735; 84100; 85025; 85027; 87040; 87086; 87651; 93005; 93010; 99285-25; Q9967